=== PATIENT | female | born 1955 | race Caucasian/White ===

== ENCOUNTER 2017-02-03 12:18 | Emergency (ER) | payer BC ==
--- NOTE | ~2017-02-03 | US85 ---
[facility] A Service of [facility] RADIOLOGY TEXT RESULTS PATIENT: ADRIEL BLAKE LOCATION: LESLY : 55 UNIT #: [id number] AGE: [address]: Micheal Saul MD SEX: F ORDER DR: [id number] [facility] [address] [place], [place] [address] [id number] MR#: [id number] Acc #: [id number] NAME: ADRIEL BLAKE : 1955 SEX: F STUDY DATE/TIME: 02/03/2017 14:26 UNIT: LESLY ROOM: STUDY DESCRIPTION: LE [employer] Stdy Attending Physician: Micheal Saul M.D. Ordering Physician: Jourdan Storey M.D. Primary Care Physician: Manisha Rose M.D. MEDICAL IMAGING REPORT This report is preliminary unless electronic signature is present EXAM Right lower extremity venous duplex 02/03/2017. HISTORY Right leg pain and swelling for 2 weeks. Evaluate for deep vein thrombosis. FINDINGS TECHNIQUE Venous ultrasound examination of the right lower extremity was performed using grayscale, spectral Doppler and color flow Doppler imaging. FINDINGS The examination is negative. There is no evidence of right lower extremity deep venous thrombus from the groin to the lower calf. Visualized greater saphenous vein is also patent. IMPRESSION Negative examination. No evidence of right lower extremity deep venous thrombosis. Dictated by... Leandro Villafana M.D. THIS IS AN ELECTRONICALLY VERIFIED REPORT Leandro Villafana M.D. at 02/07/2017 9:19 AM LANIE/john TD: 02/03/2017 18:30 JOB #: [id number] MEDICAL IMAGING REPORT [facility] A Service [facility] RADIOLOGY TEXT RESULTS PATIENT: ADRIEL BLAKE LOCATION: LESLY : 55 UNIT #: [id number] AGE: [address]: Micheal Saul MD SEX: F ORDER DR: Page 1 of 1 COPY
[~2017-02-03 12:18] MED LIST: ACETAMINOPHEN PO; ASPIRIN PO; ASPIRIN81 M1 PO; ASPIRIN81 M2 PO; ASPIRIN81 MG PO; ATRAC-TAIN142 GM EXT; AUGMENTIN875 M1 PO; BENTYL20 MG PO; BENZONATATE PO; BUPROPION HCL150 M1 PO; BUPROPION HCL150 M2 PO; BYSTOLIC PO; CEFDINIR300 MG PO; CHEWABLE ASPIRI81 MG PO; CYMBALTA PO; DESYREL50 M1 PO; DESYREL50 MG GT; DESYREL50 MG PO; DIAZOXIDE PO; DICYCLOMINE HCL20 MG PO; DIFLUCAN200 MG PO; EFFEXOR XR PO; EFFEXOR-XR150 MG PO; EFFEXOR100 MG PO; FAMOTIDINE20 M1 GT; FLEXERIL PO; FLEXERIL10 MG GT; FLEXERIL10 MG PO; FOLIC ACID PO; FOLIC ACID1 MG PO; FOSAMAX PO; GABAPENTIN300 M2 PO; GABAPENTIN300 MG PO; HUMIBID-LA600 MG PO; HYDROCODON-ACE1 EAC7 PO; IBUPROFEN PO; KCL PO; KEFLEX PO; KEFLEX500 MG PO; LASIX20 MG GT; LASIX20 MG PO; LEVOTHYROXINE100 MCG PO; LEVOTHYROXINE88 MCG PO; LEVOXYL88 MC1 GT; LIDEX 0.05% OIN15 GM EXT; LIPITOR20 MG GT; LIPITOR20 MG PO; LOPRESSOR PO; LORTAB 5/500 TA1 TA1 PO; LORTAB 5/500 TA1 TA2 PO; METHOTREXATE2.5 MG PO; METOPROLOL TAR25 MG DOB; METOPROLOL TAR25 MG PO; NEURONTIN300 MG GT; NEXIUM PO; NITROGYLCERIN SUBLINGUAL; OMEPRAZOLE40 M1 PO; OTEZLA30 MG GT; OTEZLA30 MG PO; PEPCID AC20 M2 PO; PLAQUENIL200 MG PO; PLAVIX PO; PRILOSEC20 MG PO; PROTONIX PO; REGLAN5 MG GT; REQUIP PO; REQUIP1 MG PO; REQUIP2 MG PO; REQUIP5 MG PO; ROPINIROLE HCL2 MG GT; SANTYL15 G1 TOP; SINGULAIR PO; SODIUM BICARBO650 MG PO; SYNTHROID PO; SYNTHROID125 PO; TYLENOL325 M1 GT; VITAMIN D32000 UNI1 PO; WELLBUTRIN PO; WELLBUTRIN SR PO; WELLBUTRIN100 MG GT; ZITHROMAX500 MG PO; ZOCOR PO
[2017-02-03 14:26] LABS: BASOPHIL# 0.1 X10e3 (0-0.3); BASOPHIL% 0.5 % (0-2.5); HEMATOCRIT 30.6 % (35.0-45.0); HEMOGLOBIN 9.6 gm/dL (12.0-16.0); LYMPHOCYTE# 2.5 X10e3 (1.0-3.5); LYMPHOCYTE% 18.7 % (17.0-45.0); MEAN CELL VOLUME 89.7 FL (83-96); MEAN CORPUSCULAR HEMOGLOBIN 28.3 PG (28-34); MEAN CORPUSCULAR HGB CONC 31.5 g/dL (30-36); MEAN PLATELET VOLUME 7.4 FL (6.5-11.5); MONOCYTE# 1.4 X10e3 (0-1.0); MONOCYTE% 10.6 % (3.0-12.0); NEUTROPHIL# 9.3 X10e3 (1.5-7.1); NEUTROPHIL% 70.2 % (40-75); PLATELET COUNT 193 X10e3 (140-420); RED BLOOD COUNT 3.41 X10e (3.90-5.30); RED CELL DISTRIBUTION WIDTH 17.6 % (11.0-15.5); WHITE BLOOD COUNT 13.2 X10e3 (4.0-10.5)
[2017-02-03 14:37] LABS: DIFF IND NO
[2017-02-03 14:47] LABS: BUN/CREATININE RATIO 23.84; CREATININE SERUM 1.3 mg/dL (0.6-1.4); GLOM FILT RATE Estimated 44.2 mL/min (>60); POTASSIUM 5.2 mmol/L (3.5-5.1)
[2017-02-03 18:13] LABS: INR 1.1; PARTIAL THROMBOPLASTIN TIME 25.7 SECONDS (23.5-31.3); PROTHROMBIN TIME (PATIENT) 11.4 SECONDS (9.6-11.5)
== END 2017-02-03 17:00 | disposition home or self-care (01) ==
LOC: CED 12:18
PROVIDERS: Emergency Medicine
DX: L03.115 Cellulitis of right lower limb (principal); D64.9 Anemia, unspecified; M06.9 Rheumatoid arthritis, unspecified
CPT/HCPCS: 36415; 80048; 85025; 85379; 85610; 85730; 93971; 99284

== ENCOUNTER 2017-03-25 20:19 | Inpatient (IN) | payer BC ==
--- NOTE | ~2017-03-25 | CO ---
Unit #: [id number] #: [id number] Patient: ADRIEL BLAKE [id number] [address] [place], [place] [address] [id number] I MR#: [id number] NAME: ADRIEL BLAKE ROOM: [facility] Age: 61 Sex: F Admission Date: 03/26/2017 : 1955 Attending Physician: Juliana Conner M.D. Primary Care Physician: Manisha oRse M.D. Consultation Date: 03/27/2017 CONSULTATION REPORT REASON FOR CONSULTATION Antibiotic management in a patient with history of neck infection. HISTORY OF PRESENT ILLNESS This is a 61-year-old female with multiple past medical history including a recent tracheocutaneous fistula, status post repair in 2015. The patient also has had multiple neck surgeries with hardware present. The patient had some respiratory distress and she was noted to have a perforated esophagus, somewhat concerned related to her previous cervical hardware placement. The patient was at [facility] and appears to have underwent a successful esophageal repair of the perforation with revision of her hardware. The patient had cultures that were positive for Aileen albicans and Aileen glabrata and was placed on Diflucan until 03/24 and she also completed ceftriaxone and Flagyl until 03/03/2017. The patient was at [facility] and recently was discontinued on 03/15/2017 with monotherapy Diflucan to complete until the 24 of March. The patient was at home and the family believes that her EDEN drain in her neck may have been pulled out three to four days after being home. She then developed some change in her drainage from her EDEN. She also developed some fever and shortness of air with associated weakness and came to [facility]. The patient was admitted for pneumonia. However, she is not on any oxygen therapy and her tracheostomy tube is capped. While here, she has had a fever of 102.9. Her white blood cell count has been 22,000 and she has been started on vancomycin and Zosyn and ID was asked to evaluate for further management. PAST MEDICAL HISTORY Includes: 1. COPD. Rheumatoid arthritis. 2. Hypertension. 3. Coronary artery disease. 4. History of tracheocutaneous fistula in 2016. 5. Multiple cervical spine surgeries with hardware. 6. The patient also has had a PEG placement. 7. Engel esophagus. 8. Chronic kidney disease. 9. Erosive esophagitis. 10. Fibromyalgia. 11. Hypothyroidism. 12. Myocardial infarct. 13. Psoriasis. 14. Pseudomonas infection in the past. 15. Restless leg syndrome. Unit #: [id number] #: [id number] Patient: ADRIEL BLAKE 16. Seizures. 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 18. The patient has also had wrist surgery. 19. Bilateral breast reduction. 20. Cholecystectomy. 21. Lap band. 22. Elbow surgery x5. 23. Rotator cuff surgery. 24. Finger tendon repair. ALLERGIES No known allergies. MEDICATIONS Vancomycin and Zosyn. For other medications, please refer to patient's MAR. SOCIAL HISTORY No alcohol use x10 years. No tobacco abuse currently. REVIEW OF SYSTEMS The patient reports minimal shortness of air. She reports fever at home. She reports drainage coming from her EDEN drain in the right side of her neck. No significant abdominal pain, nausea or diarrhea at this time. No non-healing wounds. She has a neck brace in place and she wishes for it to be removed. PHYSICAL EXAMINATION VITAL SIGNS: Temperature 98.5 with a T-max on admission of 102.9, pulse is 81, blood pressure 138/59 and respiratory rate is 18. GENERAL: This is a no apparent distress female who is currently laying in the bed comfortably. She has a hard C-collar in place with a tracheostomy that is midline that is capped. HEENT/NECK: Her pupils are equal. Her neck incision is intact. She has a EDEN drain in the right side of her neck that appears to have some exposure of the white part of the drain. The drain itself shows some purulent fluid collection. CHEST EXAM: Diminished lung lai. CARDIOVASCULAR: S1, S2. Regular rate and rhythm. ABDOMEN: Positive bowel sounds. Soft, nontender with PEG tube. EXTREMITIES: No clubbing, cyanosis, edema. There is a PICC line in place. DIAGNOSTIC STUDIES LABORATORY: BUN 42, creatinine 1.1, sodium 135, potassium 3.4, chloride 103, CO2 22, bilirubin is 0.7, AST 91, ALT is 74, alkaline phos. 279. Procalcitonin was not checked this admission. White blood cell count 19.6, hemoglobin 9.0, hematocrit 27.7 and platelets 161. Urinalysis shows minimal pyuria with no nitrites and 10-25 WBCs. Urine culture shows less than 30,000 colonies of Gram-positive and Gram-negative fortunato, suspected (1) contamination. Blood cultures are currently showing no growth after 24 hours. Unit #: [id number] #: [id number] Patient: ADRIEL BLAKE IMAGING: CT scan of the chest is not available for my review at this time. 03/26 chest x-ray shows no focal infiltrates. CT scan of the abdomen and pelvis done on admission due to some nausea, showed no obstructing renal or ureteral calculi. Bilateral kidney atrophy. Absence of gallbladder. Prior gastric banding. Infiltrate in the right lower lobe. IMPRESSION This is a 61-year-old female with complex medical history. The patient has a history of erosive esophagitis secondary to past alcohol use years ago. The patient developed a tracheocutaneous fistula in 2015. At that time, she had a flap repair. The patient then presented after multiple spine surgeries in the past with an esophageal perforation thought to be related to the cervical hardware placement. She has since had this esophageal perforation repaired in January of 2017. The patient also had a revision of her cervical spine surgery and hardware revision at that time. The patient's cultures all grew Aileen albicans and Aileen glabrata. She was broadly covered with antibiotics and appears for about two weeks and then she was also to be on Diflucan until the 24 of March. The [facility] was at [facility]. She was doing well and she was sent home on the 15 of March. Several days after being home, it appears that her drain had gotten pulled out some and there was a change in drainage from serosanguineous to more brown per the family. The patient then began developing fever and some occasional shortness of air and she now appears at this time to most likely have a malpositioned EDEN in her neck with questionable developing abscess in her neck and unclear if patient has ongoing leak from her esophageal repair. She does inform me that she does not eat and she does have tube feeds at home. The patient also has some questionable right lower lobe pneumonia, however, is not requiring oxygen therapy and is not producing any productive sputum. At this time, the case was discussed with Dr. Conner and the patient will need a CT scan of her neck to evaluate the drain placement and may need repositioning or CT surgery to evaluate. Vancomycin and Zosyn are appropriate at this time but, with patient's history of Aileen albicans and non-albicans infection, would recommend to also add Mycamine 100 mg IV q.24 hours with the first dose stat. Will have the nursing staff call with any positive blood cultures and will continue to follow patient. Thank you for allowing us to participate in the care and further recommendations to follow pending patient's clinical course. Dictated by... Evan MccordP.R.NMaggie for Raymundo Frost/abiel TD: 03/27/2017 12:00 JOB #: [id number] Unit #: [id number] #: [id number] Patient: ADRIEL BLAKE CONSULTATION REPORT Page 1 of 1 X X CONSULTATION REPORT
--- NOTE | ~2017-03-25 | FU ---
[facility] Nutrition Therapy DATE: 03/30/17 Patient: ADRIEL BLAKE Physician: JUDITH Address: [address] [place] [address] Room/Bed: [address], Zip: [place] [address] Admit Date: 03/26/17 Date of : 55 Height: 5 5 Weight: 123 56 NUTRITION MONITORING/FOLLOW-UP: Reason: PT SEEN FOR FOLLOW-UP/ENTERAL NUTRITION SUPPORT DX: FEVER, N/V/D, PNA Anthropometrics: 5'0", WT: 123# (56 KG), BMI: 24.0 -ADMIT WEIGHT: 116# Labs: CA+:7.7, ALB: 2.1, AST: 82, ALT: 78 Meds: D5%, SYNTHROID (PEG), NOVOLOG, MIRALAX, ZOFRAN, FOLIC ACID, ASCORBIC ACID I&O's: 4264/3913, 3 BMs NOTED Skin: NO KNOWN SKIN ISSUES Estimated Nutrition Needs: [id number] KCAL 57-63 G PRO Assessment: CHART REVIEWED AND EVENTS NOTED. PT SEEN FOR ENTERAL NUTRITION SUPPORT FOLLOW-UP. PT ASLEEP AT TIME OF VISIT RECEIVING ALTERNATIVE NUTRITION SUPPORT OF JEVITY 1.5 @ 50 ML/HR X 20 HOURS (PT ON SYNTHROID-HOLD 2 HOURS BEFORE AND 2 HOURS AFTER ADMINISTRATION). PER RN AND CHART, PT TOLERATING ENTERAL NUTRITION, BUT NOTING DIARRHEA YESTERDAY. PER PUMP HISTORY, PT RECEIVING ~86% TOTAL VOLUME PAST 24 HOURS. NO FAMILY IN ROOM AT TIME OF VISIT. RD TO CONTINUE TO FOLLOW. Dx: INADEQUATE PROTEIN-ENERGY INTAKE R/T PMH, CURRENT DIAGNOSIS AEB PT REPORT, PEG IN PLACE PRIOR TO ADMIT, HOME ALTERNATIVE NUTRITION SUPPORT IN PLACE.-ACTIVE Intervention: 1. ENTERAL NUTRITION Monitoring, Evaluation and Goals: 1. ENTERAL NUTRITION; PROVIDE >80% TOTAL VOLUME X 20 HOURS-MET/IN PROGRESS 2. WEIGHTS; PROMOTE WEIGHT MAINTENANCE-IN PROGRESS 3. LABS; WNL-IN PROGRESS 4. GI; PROMOTE REGULAR GI FUNCTION-IN PROGRESS MONITOR: -TF RATE/RESIDUALS -WEIGHTS -LABS [facility] Nutrition Therapy DATE: 03/30/17 Patient: ADRIEL BLAKE Physician: JUDITH Address: [address] [place] [address] Room/Bed: [address], Zip: [place] [address] Admit Date: 03/26/17 Date of : 55 Height: 5 5 Weight: 123 56 Recommendations: 1. RECOMMEND TO INCREASE CURRENT ENTERAL NUTRITION SUPPORT OF JEVITY 1.5 TO GOAL RATE OF 55 ML/HR X 20 HOURS (PT ON SYNTHROID-HOLD 2 HOURS BEFORE AND 2 HOURS AFTER ADMINISTRATION) -PROVIDES 1650 KCAL, 70 G PRO, 836 ML FREE H20 ADD FREE H20 FLUSHES OF 130 ML q 4 HOURS TO MEET PT'S CURRENT ESTIMATED FLUID NEEDS OR MANAGE PER MD 2. CONTINUE TO MONITOR FOR SIGNS OF ENTERAL NUTRITION INTOLERANCE RD WILL F/U PER PROTOCOL PT IS MODERATELY COMPROMISED Respectfully, TAL FERNANDEZ MS, RD, LD Food and Nutritional Services [facility] cc: client file
--- NOTE | ~2017-03-25 | A ---
[facility] Nutrition Therapy DATE: 03/27/17 Patient: ADRIEL BLAKE Physician: JUDITH Address: [address] [facility] Room/Bed: [address], Zip: [place] [address] Admit Date: 03/26/17 Date of : 55 Height: 5 5 Weight: 122 55.33 NUTRITIONAL ASSESSMENT: REASON: CONSULT RE: ENTERAL NUTRITION SUPPORT ASSESSMENT PT IS 61 Y.O. FEMALE ADMITTED FOR FEVER N/V/D, PNA PMH: NO RECENT H&P IN [facility]. PER CHART/PAST NOTES: CKD STAGE 3, RAPHAEL'S ESOPHAGUS, CAD, COPD, RA, GERD, RLS, LAP BAND, HYPOTHYROID, HTN, SD, S/P PEG & TRACH PLACEMENT Anthropometrics: 5'0" (PER PT), WT: 115# (PER PT) ( 52 KG ), BMI: 22.5, 115%IBW Labs: K+:3.4, GLU: 127, BUN: 42, CA+:8.2, ALB: 2.3, AST: 91, ALT: 74. GFR: 54.2 Meds: SYNTHROID (PEG), NOVOLOG, MIRALAX, ZOFRAN, FOLIC ACID, VITAMIN D, ASCORBIC ACID, PROTONIX, NACL I/O & Bowel function: 1523/4, 2 BMs NOTED Skin Integrity: NO KNOWN SKIN ISSUES Estimated Nutrition Needs: [id number] KCAL (28-32 KCAL/KG BW) 57-73 G PRO (1.1-1.4 G PRO/KG BW) FLUIDS CONSISTENT W/KCAL NEEDS OR MANAGE PER MD Assessment: CHART REVIEWED AND EVENTS NOTED. PT SEEN FOR ENTERAL NUTRITION SUPPORT CONSULT. PT AWAKE AT TIME OF VISIT REPORTING DECREASED PO INTAKE 2' DECREASED APPETITE PAST SEVERAL MONTHS. PT REPORTS WEIGHT LOSS BUT UNABLE TO IDENTIFY AMOUNT AND TIME FRAME. PER [facility], PT WEIGHED ~150# IN AUGUST 2016?? OF NOTE, PT RECEIVING BOLUS ENTERAL NUTRITION NEPRO 1 CAN q 4 HOURS (6 CANS TOTAL) + 200 ML q 6 HOURS FREE H20 FLUSHES. PER PT AND FAMILY, NOT WAS NOT TOLERATING HOME BOLUS FEEDS-NOTED N/V. OF NOTE, PT NOTED TO HAVE ESOPHAGEAL PERFORATION IN JANUARY 2017. PT REPORTED NO DIET QUESTIONS AT THIS TIME. RD TO FOLLOW. SEE RECOMMENDATIONS BELOW. Dx: INADEQUATE PROTEIN-ENERGY INTAKE R/T PMH, CURRENT DIAGNOSIS AEB PT REPORT ABOVE, PEG IN PLACE, HOME ENTERAL NUTRITION SUPPORT. Intervention: 1. RD CONSULT 2. NEPRO BOLUS FEEDS 1 CAN q 4 HOURS Monitoring, Evaluation and Goals: 1. ENTERAL NUTRITION; PROVIDE/TOLERATE >80% TOTAL VOLUME X 22 HOURS W/NO RESIDUALS 2. WEIGHTS; PROMOTE WEIGHT MAINTENANCE; PREVENT FURTHER WEIGHT LOSS 3. LABS; WNL: [facility] Nutrition Therapy DATE: 03/27/17 Patient: ADRIEL ANTON HAYDEN Physician: JUDITH Address: [address] [place] [address] Room/Bed: [address], Zip: [place] [address] Admit Date: 03/26/17 Date of : 55 Height: 5 5 Weight: 122 55.33 4. GI; PROMOTE REGULAR GI FUNCTION MONITOR: -WEIGHTS -TF RATE/RESIDUALS -LABS Recommendations: 1. ONCE MEDICALLY FEASIBLE, BEGIN ALTERNATIVE NUTRITION SUPPORT OF JEVITY 1.5 @ 20 ML/HR, ADVANCE 10 ML q 8 HOURS TO GOAL RATE OF 50 ML/HR X 22 HOURS (PT ON SYNTHROID-HOLD ONE HOUR BEFORE AND ONE HOUR AFTER ADMINISTRATION) -PROVIDES 1650 KCAL, 70 G PRO, 836 ML FREE H20 ADD FREE H20 FLUSHES PER MD 2. CONSULT CATTLE KILLER FOR SAFE SWALLOW IF APPROPRIATE RD WILL F/U PER PROTOCOL PT IS MOD/SEVERELY COMPROMISED Respectfully, TAL FERNANDEZ MS, RD, LD Food and Nutritional Services [facility] cc: client file
--- NOTE | ~2017-03-25 | CR72 ---
[facility] A Service of [facility] RADIOLOGY TEXT RESULTS PATIENT: ADRIEL BLAKE LOCATION: SED : 55 UNIT #: [id number] AGE: [address]: Juliana Conner MD SEX: F ORDER DR: [id number] [address] [address] [id number] MR#: [id number] Acc #: [id number] NAME: ADRIEL BLAKE : 1955 SEX: F STUDY DATE/TIME: 03/25/2017 21:43 UNIT: SED ROOM: STUDY DESCRIPTION: CR Chest Single View Portable Attending Physician: Jose Granados M.D. Ordering Physician: Jose Granados M.D. Primary Care Physician: Manisha Rose M.D. MEDICAL IMAGING REPORT This report is preliminary unless electronic signature is present. EXAM Portable chest, 03/25/2017. HISTORY Fever, nausea, and cough for 1 day. Benign essential hypertension FINDINGS The heart is normal in size. The lungs are clear. There are no pleural effusions. There are old healed rib fractures bilaterally. Tracheostomy tube tip is approximately 3 cm above the omayra. Postsurgical changes of prior fusion in the lower cervical spine. Postoperative changes involving the right shoulder. IMPRESSION No active pulmonary disease. Dictated by... Leandro Villafana M.D. THIS IS AN ELECTRONICALLY VERIFIED REPORT Leandro Villafana M.D. at 03/26/2017 2:16 PM LANIE/allison TD: 03/26/2017 04:54 JOB #: [id number] MEDICAL IMAGING REPORT Page 1 of 1
--- NOTE | ~2017-03-25 | HP ---
Unit #: [id number] #: [id number] Patient: ADRIEL BLAKE [id number] [address] [place], [place] [address] [id number] I MR#: [id number] NAME: ADRIEL BLAKE ROOM: [facility] Age: 61 Sex: F Admission Date: 03/26/2017 : 1955 Attending Physician: Juliana Conner M.D. Primary Care Physician: Manisha Rose M.D. HISTORY AND PHYSICAL CHIEF COMPLAINT Shortness of breath. HISTORY OF PRESENT ILLNESS This patient is basically a 61-year-old female with a past medical history of tracheocutaneous fistula, underwent closure with sternohyoid flap and rhomboid flap closure in mid 2015. 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 She is NPO because of the diverticulum and she uses the gastrostomy tube and was admitted at [facility] for physical rehabilitation. She required continuous tube feeding during that admission. She has a C-collar followed by ENT and has a EDEN drain with continuous output. At this time, presents with a complaint of shortness of breath to an outside facility. I am seeing her at the bedside. She is requiring IV pressors. Denies any headache, blurry vision. No chest pain. REVIEW OF SYSTEMS Positive for pallor. No edema. No cyanosis. No jaundice. Rest are per history of present illness. Rest of 12-point review of systems has been reviewed and is negative. DIAGNOSTIC STUDIES IMAGING: Chest x-ray showed she had a CT of the abdomen and pelvis done at an outside facility. It showed possible right lower lobe infiltrate. I am seeing her at the bedside. She has significant discharge in her EDEN drain in her neck, yellowish color. PHYSICAL EXAMINATION VITAL SIGNS: Temperature 98, pulse 87, respirations 12, blood pressure 130/70. NEUROLOGIC: Awake, alert, oriented. No neuro deficit. HEENT: PERRLA plus 1. NECK: Supple. No JVD. CHEST: Bilateral air entry. Bilateral mild rhonchi. GASTROINTESTINAL: Nontender, soft. Bowel sounds positive. EXTREMITIES: No edema. Labs and imaging have been reviewed. PAST MEDICAL HISTORY 1. Rheumatoid arthritis. 2. Coronary artery disease. 3. Gastrostomy tube. Unit #: [id number] #: [id number] Patient: ADRIEL BLAKE 4. Status post tracheostomy. 5. COPD. 6. Psoriasis. 7. Pancytopenia. 8. Hypertension. 9. Irritable bowel syndrome. 10. Restless leg syndrome. 11. Hyperglycemia. 12. Cholecystectomy. 13. Lap Band surgery. 14. Breast reduction surgery. 15. Left wrist surgery. 16. C-spine surgery. MEDICATIONS As per NOV, has been reviewed. ASSESSMENT 1. Right lower lobe pneumonia, possible aspiration and questionable infection at the site of the EDEN drain. 2. Sepsis shock. PLAN At this point, plan is to continue patient on pressors. Continue on oxygen, bronchodilator, IV fluids, gastrointestinal/deep venous thrombosis prophylaxis, (1) , broad-spectrum IV antibiotics. Please see orders for detailed plan. Infectious disease consultation. Will request ENT from [facility] to coordinate the care. The patient will be closely monitored. Please see orders for detailed plan. Dictated by Raymundo Bullard TD: 03/27/2017 11:13 JOB #: [id number] HISTORY AND PHYSICAL Page 1 of 1 X Juliana Conner MD HISTORY AND PHYSICAL
--- NOTE | ~2017-03-25 | EKG ---
PATIENT: ADRIEL BLAKE UNIT #: [id number] Ventricular Rate: 99 BPM Atrial Rate: 99 BPM P-R Interval: 176 ms QRS Duration: 82 ms Q-T Interval: 352 ms QTC Calculation(Bezet): 451 ms P [place]: 45 degrees Calculated R [place]: 12 degrees Calculated T [place]: 12 degrees Diagnosis Line: Normal sinus rhythm Diagnosis Line: Normal ECG Diagnosis Line: When compared with ECG of 16-AUG-2016 20:37, Diagnosis Line: No significant change was found Diagnosis Line: Confirmed by PRINCE SCOTT MD ([id number]) on 03/29/2017 Diagnosis Line: 2:50:27 PM INTERPRETING MD: SONIA TREVINO
--- NOTE | ~2017-03-25 | DS ---
Unit #: [id number] #: [id number] Patient: ADRIEL BLAKE [id number] [address] [address] [id number] I MR#: [id number] NAME: ADRIEL BLAKE ROOM: [facility] Age: 61 Sex: F Admission Date: 03/26/2017 : 1955 Discharge Date: 04/02/2017 Attending Physician: Juliana Conner M.D. Referring Physician: Juliana Conner M.D. Primary Care Physician: Manisha Rose M.D. DISCHARGE SUMMARY DISCHARGE DIAGNOSES 1. Atypical pneumonia. 2. Other comorbidities: A. Adrenal insufficiency. B. Hypertension, currently hypotensive. C. Coronary artery disease. D. History of tracheocutaneous fistula, 2015. E. Multiple cervical spine surgery with hardware. F. Engel esophagus. G. Chronic kidney disease. H. Erosive esophagitis. I. Fibromyalgia. J. Hypothyroidism. K. Myocardial infarction. L. Psoriasis. M. Pseudomonas infection in the past. N. Restless leg syndrome. O. Seizure. DISCHARGE MEDICATIONS New medication: 1. Hydrocortisone 10 mg p.o. b.i.d. 2. Midodrine 10 mg p.o. t.i.d. 3. Probiotics one tab p.o. daily. Home medication: 1. Tylenol p.r.n. 2. Neurontin 300 mg three times daily. 3. Wellbutrin 100 mg p.o. twice daily. 4. Trazodone 50 mg p.o. daily. 5. Zofran 4 mg p.o. q.i.d. p.r.n. 6. Requip 4 mg daily. 7. Docusate p.r.n. 8. MiraLax p.r.n. 9. Ferrous sulfate 300 mg p.o. daily. 10. Multivitamin p.o. daily. 11. Melatonin. 12. Oxycodone 10 mg q.4 hours p.r.n. 13. Petroleum ointment b.i.d. 14. Omeprazole 40 mg p.o. daily. 15. Flexeril 5 mg at bedtime. 16. Levothyroxine 88 mcg p.o. daily. 17. Folic acid 1 mg p.o. daily. 18. Vitamin C daily. Unit #: [id number] #: [id number] Patient: ADRIEL BLAKE 19. Vitamin D daily. The patient finished all antibiotics before discharge. CONSULTANTS 1. Dr. Wilson. 2. Dr. Colón. BRIEF HOSPITAL COURSE This is a 61-year-old -[place] female with a complex past medical history including tracheocutaneous fistula status post repair in 2015. So, the patient had multiple neck surgeries with hardware present and she is currently with neck collar. The patient recently underwent a successful esophageal repair at the [facility] with revision of the hardware. Her culture in the past was positive for Aileen albicans and Aileen glabrata and she was placed on Diflucan until March 24, 2017. The patient was at [facility] recently. When she was discharged home, she accidentally pulled her EDEN drain in her neck and then she developed some drainage and fever with shortness of breath. Upon presentation to the ER, her workup was suggestive of atypical pneumonia. The patient was started on broad-spectrum antibiotics. However, her antibiotics were discontinued on the day of discharge. The patient suffered from septic shock throughout admission and she was needing pressors for an extended period of time. Adrenal insufficiency was suspected and her cortisone level was seven. She was started on hydrocortisone IV and she will be switched to hydrocortisone p.o. and she will follow up with Dr. Colón as an outpatient. Discharged home. DISCHARGE CONDITION Stable. Followup appointment with Dr. Colón in one week. Dictated by... Raymundo Tapia TD: 04/03/2017 07:46 JOB #: [id number] DISCHARGE SUMMARY Page 1 of 1 X MAGALY AUSTIN MD X DISCHARGE SUMMARY
--- NOTE | ~2017-03-25 | CT4 ---
[facility] A Service of [facility] & [facility] RADIOLOGY TEXT RESULTS PATIENT: ADRIEL BLAKE LOCATION: SEDOF [id number] : 55 UNIT #: [id number] AGE: [address]: Juliana Conner MD SEX: F ORDER DR: [id number] [address] [address] [id number] E MR#: [id number] Acc #: [id number] NAME: ADRIEL BLAKE : 1955 SEX: F STUDY DATE/TIME: 03/25/2017 22:27 UNIT: SED ROOM: STUDY DESCRIPTION: CT Abd and Pelv Wo Cont Attending Physician: Jose Granados M.D. Ordering Physician: Jose Granados M.D. Primary Care Physician: Manisha Rose M.D. MEDICAL IMAGING REPORT This report is preliminary unless electronic signature is present. EXAM CT scan of the abdomen and pelvis without contrast, 03/25/2017. HISTORY Generalized abdominal pain and nausea for 1 day. Elevated white blood cell count of 22.[address] was performed through the abdomen and pelvis without oral or intravenous contrast administration using renal stone protocol. This CT exam was performed with one or more of the following radiation dose reduction techniques: automatic exposure control, adjustment of mA and/or kV according to patient size, and iterative reconstruction. FINDINGS ABDOMEN: There is no obstructing renal or ureteral calculus. The kidneys are atrophic bilaterally. The liver is normal in appearance. Calcified granulomas are seen in the spleen. The pancreas is normal. The gallbladder is surgically absent. Adrenal gland nodularity is stable compared with 08/23/2017 and may represent adrenal adenomas. Gastric banding is again noted. PELVIS FINDINGS: The gut, mesenteric and nubia structures are normal. There is no free fluid in the abdomen or pelvis. Images of the lung bases demonstrate reticulonodular infiltrate in the right lower lobe characteristic of pneumonia. There is a small pericardial effusion. IMPRESSION 1. No obstructing renal or ureteral calculus. Kidneys are atrophic bilaterally. 2. Surgical absence of the gallbladder. 3. Stable nodularity of both adrenal glands compared with 08/23/2016, [facility] A Service of [facility] & [facility] RADIOLOGY TEXT RESULTS PATIENT: ADRIEL BLAKE LOCATION: SED [id number] : 55 UNIT #: [id number] AGE: [address]: Juliana Conner MD SEX: F ORDER DR: probably representing bilateral adrenal adenomas. 4. Prior gastric banding is again noted. 5. Enteric tube within the gastric lumen. 6. Reticulonodular infiltrate right lower lobe suggesting pneumonia. Clinical correlation recommended. 7. Small pericardial effusion. Dictated by... Leandro Villafana M.D. THIS IS AN ELECTRONICALLY VERIFIED REPORT Leandro Villafana M.D. at 03/26/2017 2:16 PM LANIE/allison TD: 03/26/2017 05:38 JOB #: [id number] MEDICAL IMAGING REPORT Page 1 of 1
--- NOTE | ~2017-03-25 | CT114 ---
[facility] A Service of [facility] & [facility] RADIOLOGY TEXT RESULTS PATIENT: ADRIEL BLAKE LOCATION: [address] : [birth year] UNIT #: [id number] AGE: [address]: Juliana Conner MD SEX: F ORDER DR: [id number] [facility] [address] [facility]. [place], [place] [address] [id number] I MR#: [id number] Acc #: [id number] NAME: ADRIEL BLAKE : 1955 SEX: F STUDY DATE/TIME: 03/27/2017 21:41 UNIT: [facility] ROOM: [facility] STUDY DESCRIPTION: CT Soft Tissue Neck W Cont Attending Physician: Juliana Conner M.D. Referring Physician: Juliana Conner M.D. Ordering Physician: Juliana Conner M.D. Primary Care Physician: Manisha Rose M.D. MEDICAL IMAGING REPORT This report is preliminary unless electronic signature is present EXAM Neck CT with contrast HISTORY Cough, fever and sepsis, onset 03/25/2017. 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 COMPARISON 02/14/2017. TECHNIQUE Axial imaging was obtained from the skull base to the upper mediastinum with contrast. 100 mL of Isovue was used. This CT examination was performed with one or more of the following radiation dose reduction techniques: automatic exposure control, adjustment of mA and/or kV according to patient size, and iterative reconstruction. FINDINGS The skull base, parapharyngeal spaces and pharyngeal mucosal surfaces have a normal appearance. The parotid and submandibular glands are symmetric. Soft tissue planes in the hypopharynx and larynx are preserved. Postoperative changes of cervical corpectomy infusion are noted with a large strut graft seen from C2 to the upper endplate of C7. There is a ventral bone plate with screws at C2 and C7 and posterior fusion rods are seen accompanied by bone graft material. The hardware is unchanged from the previous examination. The left C2 pedicle screw is positioned somewhat high and the distal end of the screw rests between the articulation of the lateral mass of C1 and the C2 vertebral body with mild bony resorption around the distal end of the screw. The other hardware appears satisfactory. A drain is seen entering on the right unchanged in position from the previous examination. The distal end of the drain extends inferiorly to T1 just anterior to the T1 vertebral body. No additional drainable fluid collections are seen in the neck. [facility] A Service of [facility] RADIOLOGY TEXT RESULTS PATIENT: ADRIEL BLAKE LOCATION: CICCU2 CICCU2-09 : 55 UNIT #: [id number] AGE: [address]: Juliana Conner MD SEX: F ORDER DR: tracheostomy tube appears in satisfactory position. The proximal right vertebral artery appears to be occluded. The distal right vertebral fills from collaterals and is of small caliber. The dominant left vertebral artery is widely patent throughout the cervical spine. The right vocal cord is displaced medially. This could be secondary to postoperative swelling. I cannot rule out a right vocal cord paralysis. No adenopathy is seen in the upper mediastinum. The right sternocleidomastoid muscle has been resected. IMPRESSION Postoperative changes right side of the neck with a drain in place and no drainable fluid collection is identified. Again noted is somewhat high positioning of the C2 pedicle screw on the left. It runs in the joint space between C1 and C2. No new fluid collections are seen since the previous outside scan of 02/14/2017. No evidence of adenopathy. The right vocal cord is displaced medially. I cannot rule out a right vocal cord paralysis. Hardware is unchanged in position since the previous examination. Dictated by... Micheal Strickland M.D. THIS IS AN ELECTRONICALLY VERIFIED REPORT Micheal Strickland M.D. at 03/30/2017 4:08 PM AGUSTINA/kimmy TD: 03/30/2017 06:56 JOB #: [id number] MEDICAL IMAGING REPORT Page 1 of 1 COPY
--- NOTE | ~2017-03-25 | CR72 ---
[facility] A Service of [facility] & [facility] RADIOLOGY TEXT RESULTS PATIENT: ADRIEL BLAKE LOCATION: [place] [address] : 55 UNIT #: [id number] AGE: [address]: Juliana Conner MD SEX: F ORDER DR: [id number] [facility] [address] [place], [place] [address] [id number] I MR#: [id number] Acc #: [id number] NAME: ADRIEL BLAKE : 1955 SEX: F STUDY DATE/TIME: 03/28/2017 5:35 UNIT: [facility] ROOM: [facility] STUDY DESCRIPTION: CR Chest Single View Portable Attending Physician: Juliana Conner M.D. Referring Physician: Juliana Conner M.D. Ordering Physician: Juliana Conner M.D. Primary Care Physician: Manisha Rose M.D. MEDICAL IMAGING REPORT This report is preliminary unless electronic signature is present EXAM Portable chest HISTORY Followup pneumonia, onset 2 days ago, fever, weakness. COMPARISON 03/26/2017 FINDINGS Trach tube and PICC line remain in satisfactory position, unchanged. Improved lung volumes. Minimal right basilar atelectasis. Multiple old healed right rib fractures. Heart and mediastinum unremarkable. No effusions or pneumothorax. Postsurgical changes of the cervical spine and right shoulder. Scoliosis. Dictated by... Princess Bowers M.D. THIS IS AN ELECTRONICALLY VERIFIED REPORT Princess Bowers M.D. at 03/29/2017 12:28 PM Dion TD: 03/28/2017 21:38 JOB #: [id number] MEDICAL IMAGING REPORT Page 1 of 1 COPY
[2017-03-25 21:06] LABS: URINE SOURCE CLEAN CATCH
[2017-03-25 21:09] LABS: URINE APPEARANCE CLEAR; URINE BILIRUBIN NEG (NEG); URINE BLOOD TRACE-INTACT (NEG); URINE COLOR YELLOW; URINE GLUCOSE NEG (NORM); URINE KETONE NEG (NEG); URINE LEUKOCYTE ESTERASE 1+ (NEG); URINE NITRATE NEG (NEG); URINE PH 7.5 (5-8); URINE PROTEIN TRACE (NEG); URINE UROBILINOGEN 0.2 MG/DL (NORM)
[2017-03-25 21:11] LABS: BASOPHIL# 0.1 X10e3 (0-0.3); BASOPHIL% 0.3 % (0-2.5); HEMATOCRIT 36.5 % (35.0-45.0); HEMOGLOBIN 12.1 gm/dL (12.0-16.0); LYMPHOCYTE# 1.6 X10e3 (1.0-3.5); LYMPHOCYTE% 7.2 % (17.0-45.0); MEAN CELL VOLUME 92.9 FL (83-96); MEAN CORPUSCULAR HEMOGLOBIN 30.7 PG (28-34); MEAN PLATELET VOLUME 9.1 FL (6.5-11.5); MONOCYTE# 1.6 X10e3 (0-1.0); MONOCYTE% 7.1 % (3.0-12.0); NEUTROPHIL# 18.9 X10e3 (1.5-7.1); NEUTROPHIL% 85.4 % (40-75); PLATELET COUNT 203 X10e3 (140-420); RED BLOOD COUNT 3.93 X10e (3.90-5.30); RED CELL DISTRIBUTION WIDTH 16.9 % (11.0-15.5); WHITE BLOOD COUNT 22.2 X10e3 (4.0-10.5)
[2017-03-25 21:12] LABS: MICRO INDICATED? YES
[2017-03-25 21:12] LABS: DIFF IND NO
[2017-03-25 21:14] LABS: CULTURE INDICATED? YES; URINE BACTERIA 1+ (NEG); URINE SQUAMOUS EPITHELIAL CELL FEW /[HPF]; URINE TRANSITIONAL EPI CELLS OCCAS /[HPF]
[2017-03-25 21:29] LABS: ALBUMIN SERUM 3.3 g/dL (3.5-5.0); BILIRUBIN, DIRECT 0.1 mg/dL (0.0-0.2); BILIRUBIN,INDIRECT 0.4 mg/dL (0.0-0.9); BILIRUBIN,TOTAL 0.5 mg/dL (0.2-2.0); CALCIUM SERUM 9.8 mg/dL (8.4-10.2); CREATININE SERUM 1.4 mg/dL (0.6-1.4); GLOM FILT RATE Estimated 40.4 mL/min (>60); POTASSIUM 4.3 mmol/L (3.5-5.1); PROTEIN TOTAL SERUM 8.3 g/dL (6.0-8.3)
[2017-03-25 22:12] LABS: POC - CKMB <1.0 ng/mL (0.0-7.9); POC - TROPONIN <0.05 ng/mL (<=0.05)
[2017-03-25] MEDS ORDERED: ASCORBIC ACID500 M4 PEG (23:37)
[2017-03-25] MEDS ORDERED: WELLBUTRIN100 MG PEG (23:37)
[2017-03-25] MEDS ORDERED: TYLENOL325 M1 PEG (23:37)
[2017-03-25] MEDS ORDERED: ALBUTEROL 0.5ML (23:37)
[2017-03-25] MEDS ORDERED: FOLIC ACID PEG (23:38)
[2017-03-25] MEDS ORDERED: FLUCONAZOLE200 MG PEG (23:38)
[2017-03-25] MEDS ORDERED: VITAMIN D1000 UNI1 PEG (23:38)
[2017-03-25] MEDS ORDERED: LEVOXYL88 MCG PEG (23:38)
[2017-03-25] MEDS ORDERED: GABAPENTIN400 MG PEG (23:38)
[2017-03-25] MEDS ORDERED: FLEXERIL10 MG PEG (23:38)
[2017-03-25] MEDS ORDERED: REQUIP2 MG PEG (23:39)
[2017-03-25] MEDS ORDERED: OXYCODONE HCL10 MG PEG (23:39)
[2017-03-25] MEDS ORDERED: MULTI VITAMIN1 EACH PEG (23:39)
[2017-03-25] MEDS ORDERED: OMEPRAZOLE40 M1 PEG (23:39)
[2017-03-25] MEDS ORDERED: PROTEIN (23:39)
[2017-03-25] MEDS ORDERED: DESYREL50 MG PEG (23:40)
[2017-03-26] MEDS ORDERED: FERROUS SULFATE PEG (09:31)
[2017-03-26] MEDS ORDERED: DOCUSATE SODIU100 MG PEG (09:31)
[2017-03-26] MEDS ORDERED: MELATONIN1 MG PEG (09:32)
[2017-03-26] MEDS ORDERED: POLYETHYLENE GLY1 GM PEG (09:33)
[2017-03-26] MEDS ORDERED: ZOFRAN PEG (09:33)
[2017-03-26] MEDS ORDERED: VASELINE WHITE P5 GM TOP (09:34)
[2017-03-27 04:23] LABS: HEMATOCRIT 27.7 % (35.0-45.0); MEAN CELL VOLUME 92.4 FL (83-96); MEAN CORPUSCULAR HEMOGLOBIN 30.1 PG (28-34); MEAN CORPUSCULAR HGB CONC 32.6 g/dL (30-36); MEAN PLATELET VOLUME 8.5 FL (6.5-11.5); WHITE BLOOD COUNT 19.6 X10e3 (4.0-10.5)
[2017-03-27 04:33] LABS: ARTERIAL BLD GAS O2 SATURATION 96.7 % (90.0-100.0); ARTERIAL BLOOD GAS CARBOXY HB 1.3 %sat (0.0-9.0); ARTERIAL BLOOD GAS HCO3 21.7 mmol/L; ARTERIAL BLOOD GAS MET HB 0.4 %sat (0.0-2.0); ARTERIAL BLOOD GAS PCO2 34.9 mmHg (35.0-45.0); ARTERIAL BLOOD GAS PO2 96.5 mmHg (80.0-100); ARTERIAL BLOOD GAS pH 7.402 (7.350-7.450)
[2017-03-27 04:39] LABS: ARTERIAL BLOOD GAS ALLEN TEST NORMAL; ARTERIAL BLOOD GAS ART SITE RIGHT RADIAL; ARTERIAL BLOOD GAS DELIVERY ROOMAIR; ARTERIAL DRAW? YES
[2017-03-27 04:41] LABS: ALBUMIN SERUM 2.3 g/dL (3.5-5.0); BILIRUBIN,TOTAL 0.7 mg/dL (0.2-2.0); BUN/CREATININE RATIO 38.18; CALCIUM SERUM 8.2 mg/dL (8.4-10.2); CREATININE SERUM 1.1 mg/dL (0.6-1.4); GLOM FILT RATE Estimated 54.2 mL/min (>60); POTASSIUM 3.4 mmol/L (3.5-5.1); PROTEIN TOTAL SERUM 6.3 g/dL (6.0-8.3)
[2017-03-28 04:37] LABS: BASOPHIL# 0.1 X10e3 (0-0.3); BASOPHIL% 0.4 % (0-2.5); EOSINOPHIL# 0.2 X10e3 (0-0.7); EOSINOPHIL% 1.6 % (0.0-7.0); HEMATOCRIT 27.9 % (35.0-45.0); HEMOGLOBIN 9.2 gm/dL (12.0-16.0); LYMPHOCYTE# 0.9 X10e3 (1.0-3.5); LYMPHOCYTE% 6.2 % (17.0-45.0); MEAN CELL VOLUME 90.9 FL (83-96); MEAN PLATELET VOLUME 8.6 FL (6.5-11.5); MONOCYTE# 1.4 X10e3 (0-1.0); MONOCYTE% 9.7 % (3.0-12.0); NEUTROPHIL# 11.8 X10e3 (1.5-7.1); NEUTROPHIL% 82.1 % (40-75); PLATELET COUNT 169 X10e3 (140-420); RED BLOOD COUNT 3.06 X10e (3.90-5.30); RED CELL DISTRIBUTION WIDTH 15.9 % (11.0-15.5); WHITE BLOOD COUNT 14.4 X10e3 (4.0-10.5)
[2017-03-28 04:38] LABS: DIFF IND NO
[2017-03-28 04:45] LABS: ALBUMIN SERUM 2.4 g/dL (3.5-5.0); BILIRUBIN,TOTAL 0.6 mg/dL (0.2-2.0); CALCIUM SERUM 8.2 mg/dL (8.4-10.2); GLOM FILT RATE Estimated 60.8 mL/min (>60); POTASSIUM 3.7 mmol/L (3.5-5.1); PROTEIN TOTAL SERUM 6.2 g/dL (6.0-8.3)
[2017-03-28 04:49] LABS: ARTERIAL BLD GAS O2 SATURATION 94.9 % (90.0-100.0); ARTERIAL BLOOD GAS CARBOXY HB 1.9 %sat (0.0-9.0); ARTERIAL BLOOD GAS HCO3 23.6 mmol/L; ARTERIAL BLOOD GAS MET HB 0.8 %sat (0.0-2.0); ARTERIAL BLOOD GAS PCO2 40.2 mmHg (35.0-45.0); ARTERIAL BLOOD GAS PO2 83.2 mmHg (80.0-100); ARTERIAL BLOOD GAS pH 7.377 (7.350-7.450)
[2017-03-28 04:55] LABS: ARTERIAL BLOOD GAS ALLEN TEST NORMAL; ARTERIAL BLOOD GAS ART SITE LEFT RADIAL; ARTERIAL BLOOD GAS DELIVERY ROOM AIR; ARTERIAL DRAW? YES
[2017-03-29 05:25] LABS: BASOPHIL% 0.3 % (0-2.5); EOSINOPHIL# 0.3 X10e3 (0-0.7); EOSINOPHIL% 1.6 % (0.0-7.0); HEMATOCRIT 26.5 % (35.0-45.0); HEMOGLOBIN 8.8 gm/dL (12.0-16.0); LYMPHOCYTE# 2.8 X10e3 (1.0-3.5); MEAN CELL VOLUME 90.1 FL (83-96); MEAN CORPUSCULAR HEMOGLOBIN 29.7 PG (28-34); MEAN PLATELET VOLUME 8.4 FL (6.5-11.5); MONOCYTE# 1.4 X10e3 (0-1.0); MONOCYTE% 7.8 % (3.0-12.0); NEUTROPHIL% 75.3 % (40-75); PLATELET COUNT 173 X10e3 (140-420); RED BLOOD COUNT 2.94 X10e (3.90-5.30); RED CELL DISTRIBUTION WIDTH 15.7 % (11.0-15.5); WHITE BLOOD COUNT 18.5 X10e3 (4.0-10.5)
[2017-03-29 05:38] LABS: DIFF IND YES
[2017-03-29 06:22] LABS: ANISOCYTOSIS SL; PLATELET ESTIMATE NORMAL (NORMAL)
[2017-03-29 06:49] LABS: ALBUMIN SERUM 2.1 g/dL (3.5-5.0); CALCIUM SERUM 7.9 mg/dL (8.4-10.2); GLOM FILT RATE Estimated 60.8 mL/min (>60); POTASSIUM 3.8 mmol/L (3.5-5.1); PROTEIN TOTAL SERUM 5.6 g/dL (6.0-8.3)
[2017-03-30 05:44] LABS: BASOPHIL# 0.1 X10e3 (0-0.3); BASOPHIL% 0.5 % (0-2.5); EOSINOPHIL# 0.4 X10e3 (0-0.7); EOSINOPHIL% 2.3 % (0.0-7.0); HEMATOCRIT 28.3 % (35.0-45.0); HEMOGLOBIN 9.5 gm/dL (12.0-16.0); LYMPHOCYTE% 16.7 % (17.0-45.0); MEAN CELL VOLUME 89.1 FL (83-96); MEAN CORPUSCULAR HEMOGLOBIN 30.1 PG (28-34); MEAN CORPUSCULAR HGB CONC 33.7 g/dL (30-36); MEAN PLATELET VOLUME 8.2 FL (6.5-11.5); MONOCYTE# 1.7 X10e3 (0-1.0); MONOCYTE% 9.2 % (3.0-12.0); NEUTROPHIL# 12.7 X10e3 (1.5-7.1); NEUTROPHIL% 71.3 % (40-75); PLATELET COUNT 234 X10e3 (140-420); RED BLOOD COUNT 3.17 X10e (3.90-5.30); RED CELL DISTRIBUTION WIDTH 15.7 % (11.0-15.5); WHITE BLOOD COUNT 17.9 X10e3 (4.0-10.5)
[2017-03-30 05:49] LABS: DIFF IND NO
[2017-03-30 09:29] LABS: BUN/CREATININE RATIO 23.33; CALCIUM SERUM 7.7 mg/dL (8.4-10.2); CREATININE SERUM 0.9 mg/dL (0.6-1.4); GLOM FILT RATE Estimated 69.1 mL/min (>60); POTASSIUM 4.2 mmol/L (3.5-5.1)
[2017-03-31 06:23] LABS: BASOPHIL# 0.1 X10e3 (0-0.3); BASOPHIL% 0.8 % (0-2.5); EOSINOPHIL# 0.5 X10e3 (0-0.7); EOSINOPHIL% 3.5 % (0.0-7.0); HEMATOCRIT 25.5 % (35.0-45.0); HEMOGLOBIN 8.4 gm/dL (12.0-16.0); LYMPHOCYTE# 3.4 X10e3 (1.0-3.5); LYMPHOCYTE% 24.9 % (17.0-45.0); MEAN CORPUSCULAR HEMOGLOBIN 29.5 PG (28-34); MEAN CORPUSCULAR HGB CONC 32.8 g/dL (30-36); MEAN PLATELET VOLUME 8.7 FL (6.5-11.5); MONOCYTE# 1.2 X10e3 (0-1.0); NEUTROPHIL# 8.4 X10e3 (1.5-7.1); NEUTROPHIL% 61.8 % (40-75); PLATELET COUNT 212 X10e3 (140-420); RED BLOOD COUNT 2.83 X10e (3.90-5.30); RED CELL DISTRIBUTION WIDTH 15.9 % (11.0-15.5); WHITE BLOOD COUNT 13.6 X10e3 (4.0-10.5)
[2017-03-31 06:31] LABS: DIFF IND NO
[2017-03-31 07:01] LABS: BUN/CREATININE RATIO 22.5; CALCIUM SERUM 7.5 mg/dL (8.4-10.2); CREATININE SERUM 0.8 mg/dL (0.6-1.4); GLOM FILT RATE Estimated 79.6 mL/min (>60); POTASSIUM 4.3 mmol/L (3.5-5.1)
[2017-04-01 08:34] LABS: BUN/CREATININE RATIO 23.75; CALCIUM SERUM 8.1 mg/dL (8.4-10.2); CREATININE SERUM 0.8 mg/dL (0.6-1.4); GLOM FILT RATE Estimated 79.6 mL/min (>60); POTASSIUM 4.3 mmol/L (3.5-5.1)
[2017-04-02 06:22] LABS: BASOPHIL% 0.2 % (0-2.5); HEMATOCRIT 26.9 % (35.0-45.0); HEMOGLOBIN 8.8 gm/dL (12.0-16.0); LYMPHOCYTE% 22.7 % (17.0-45.0); MEAN CELL VOLUME 91.8 FL (83-96); MEAN CORPUSCULAR HEMOGLOBIN 29.9 PG (28-34); MEAN CORPUSCULAR HGB CONC 32.5 g/dL (30-36); MEAN PLATELET VOLUME 8.6 FL (6.5-11.5); MONOCYTE# 0.7 X10e3 (0-1.0); MONOCYTE% 2.8 % (3.0-12.0); NEUTROPHIL# 19.6 X10e3 (1.5-7.1); NEUTROPHIL% 74.3 % (40-75); PLATELET COUNT 257 X10e3 (140-420); RED BLOOD COUNT 2.93 X10e (3.90-5.30); RED CELL DISTRIBUTION WIDTH 16.2 % (11.0-15.5)
[2017-04-02 06:24] LABS: DIFF IND YES; WHITE BLOOD COUNT 26.4 X10e3 (4.0-10.5)
[2017-04-02 06:33] LABS: GLOM FILT RATE Estimated 60.8 mL/min (>60); POTASSIUM 4.2 mmol/L (3.5-5.1)
[2017-04-02 06:51] LABS: PLATELET ESTIMATE NORMAL (NORMAL); TOXIC GRANULATION SL
[2017-04-02 06:52] LABS: ANISOCYTOSIS SL
[2017-04-02] MEDS ORDERED: LACTINEX CHEWA1 EACH PO (18:18)
[2017-04-02] MEDS ORDERED: CORTEF10 MG PO (18:18)
[2017-04-02] MEDS ORDERED: PROAMATINE10 MG PO (18:19)
== END 2017-04-02 18:37 | disposition home or self-care (01) | DRG 871 ==
LOC: SED 20:19 → CICCU2 03-26 06:30 → SEDOF 03-26 06:30 → CICCU2 03-26 20:41
PROVIDERS: Emergency Medicine; Internal Medicine; Internal Medicine Pulmonary Disease; Nurse Practitioner Family
PROC: 02HV33Z Insertion of Infusion Device into Superior Vena Cava, Percutaneous Approach (ICD-10-PCS; principal; 2017-03-26)
DX: A41.9 Sepsis, unspecified organism (principal); R65.21 Severe sepsis with septic shock; J18.9 Pneumonia, unspecified organism; I95.9 Hypotension, unspecified; Z93.0 Tracheostomy status; J44.0 Chronic obstructive pulmonary disease with (acute) lower respiratory infection; E27.40 Unspecified adrenocortical insufficiency; R56.9 Unspecified convulsions; I12.9 Hypertensive chronic kidney disease with stage 1 through stage 4 chronic kidney disease, or unspecified chronic kidney disease; N18.9 Chronic kidney disease, unspecified; I25.10 Atherosclerotic heart disease of native coronary artery without angina pectoris; K22.70 Barrett's esophagus without dysplasia; M79.7 Fibromyalgia; E03.9 Hypothyroidism, unspecified; I25.2 Old myocardial infarction; L40.9 Psoriasis, unspecified; G25.81 Restless legs syndrome; Z96.89 Presence of other specified functional implants; Z93.1 Gastrostomy status; Z90.49 Acquired absence of other specified parts of digestive tract; Z98.84 Bariatric surgery status
CPT/HCPCS: 36415; 36600; 70491; 71010; 74176; 80048; 80053; 80076; 80202; 81003; 82306; 82533; 82553; 82652; 82803; 82947; 83690; 84484; 85025; 85027; 87040; 87086; 87493; 93005; 94640; 94760; 94761; 96361; 96365; 96375; 97110; 97161; 97167; 97530; 97535; 99291; G8978-GP; G8979-GP; G8987-GO; G8988-GO; J0171; J1265; J1610; J1650; J1720; J1815; J2248; J2405; J2543; J3370; Q9967

== ENCOUNTER → 2017-04-27 | Outpatient (CLI) | payer BC ==
[~2017-04-27] MED LIST changes: +ALBUTEROL 0.5ML; +ASCORBIC ACID500 M4 PEG; +CORTEF10 MG PEG; +CORTEF10 MG PO; +DESYREL50 MG PEG; +DOCUSATE SODIU100 MG PEG; +FERROUS SULFATE PEG; +FLEXERIL10 MG PEG; +FLUCONAZOLE200 MG PEG; +FOLIC ACID PEG; +GABAPENTIN400 M2 PEG; +GABAPENTIN400 MG PEG; +LACTINEX CHEWA1 EACH PEG; +LACTINEX CHEWA1 EACH PO; +LEVAQUIN750 M1 PEG; +LEVOXYL88 MCG PEG; +MELATONIN1 MG PEG; +MULTI VITAMIN1 EACH PEG; +OMEPRAZOLE40 M1 PEG; +OTEZLA30 MG PEG; +OXYCODONE HCL10 MG PEG; +PLAQUENIL200 MG PEG; +POLYETHYLENE GLY1 GM PEG; +PROAMATINE10 MG PEG; +PROAMATINE10 MG PO; +PROTEIN; +REGLAN5 MG PEG; +REQUIP2 MG PEG; +TIROSINT100 MCG PEG; +TYLENOL325 M1 PEG; +VASELINE WHITE P5 GM TOP; +VITAMIN C500 MG PEG; +VITAMIN D1000 UNI1 PEG; +VITAMIN D1000 UNIT PEG; +WELLBUTRIN100 MG PEG; +ZINC SULFATE220 M1 PEG; +ZOFRAN PEG
--- NOTE | ~2017-04-27 | US6 ---
[facility] A Service of [facility] & [facility] RADIOLOGY TEXT RESULTS PATIENT: ADRIEL BLAKE LOCATION: [facility] : 55 UNIT #: [id number] AGE: [address]: JUANY VALERA SEX: F ORDER DR: [id number] [place], [place] [address] [id number] O MR#: [id number] Acc #: [id number] NAME: ADRIEL BLAKE : 1955 SEX: F STUDY DATE/TIME: 04/27/2017 10:40 UNIT: [facility] ROOM: STUDY DESCRIPTION: US Abdominal Limited Attending Physician: Juany Valera Aprn Referring Physician: Juany Valera Aprn Primary Care Physician: Manisha Rose M.D. MEDICAL IMAGING REPORT This report is preliminary unless electronic signature is present EXAM Right upper quadrant ultrasound, 04/27/2017 HISTORY Abnormally elevated liver enzymes on last doctor visit. Cholecystectomy. FINDINGS The liver demonstrates an increase in echotexture with attenuation of the ultrasound beam characteristic of fatty infiltration. No cystic or solid mass lesions were seen in the liver. The intra and extrahepatic bile ducts are not dilated. The gallbladder is surgically absent as per patient history. The common duct measures 4.0 mm. The pancreas is obscured by bowel gas. The right kidney is atrophic and measures 6.4 cm in greatest diameter and demonstrates cortical thinning and increased cortical echogenicity characteristic of medical renal disease. There is no evidence of hydronephrosis. IMPRESSION 1. Fatty infiltration of the liver. 2. Surgical absence of the gallbladder. 3. Poor visualization of the pancreas due to overlying bowel gas. 4. Atrophic right kidney demonstrating increased cortical echogenicity and cortical thinning characteristic of medical renal disease. Dictated by... Leandro Villafana M.D. THIS IS AN ELECTRONICALLY VERIFIED REPORT Leandro Villafana M.D. at 04/28/2017 10:18 AM Saundra TD: 04/27/2017 13:57 JOB #: [id number] [facility] A Service of [facility] RADIOLOGY TEXT RESULTS PATIENT: ADRIEL BLAKE LOCATION: [facility] #: [id number] : 55 UNIT #: [id number] AGE: [address]: JUANY VALERA SEX: F ORDER DR: MEDICAL IMAGING REPORT Page 1 of 1 COPY
== END | disposition home or self-care (01) ==
LOC: CGUS 09:57
DX: R74.8 Abnormal levels of other serum enzymes (principal); K76.0 Fatty (change of) liver, not elsewhere classified; N26.1 Atrophy of kidney (terminal); R93.421 Abnormal radiologic findings on diagnostic imaging of right kidney; Z90.49 Acquired absence of other specified parts of digestive tract
CPT/HCPCS: 76705

== ENCOUNTER 2017-05-03 22:33 | Observation (INO) | payer BC ==
[~2017-05-03] VITALS: Ht 152.4 cm; Wt 59.4 kg
--- NOTE | ~2017-05-03 | A ---
[facility] Nutrition Therapy DATE: 05/04/17 Patient: ADRIEL BLAKE Physician: SHA Address: [address] [facility] Room/Bed: [address] [place] [address], Zip: [place] [address] Admit Date: 05/04/17 Date of : 55 Height: 5 0 Weight: 130 59 NUTRITIONAL ASSESSMENT: REASON: Consult for enteral nutrition recommendations Admitting dx: 61 y/o female admitted with chest pain PMH: Tracheocutaneous fistula s/p trach, dysphagia s/p PEG, esophageal diverticulum, lap band, detxer, hyperglycemia, CAD, HTN, COPD Anthropometrics: Ht: 60", Wt: 130 lbs (per pt), BMI: 25 (overweight) Labs: BUN 40, AST 93, ALT 104, GFR 44.2 Meds: Lactinex, Levaquin (PEG), Synthroid (PEG), Vitamin C, Reglan I/O & Bowel function: BM 05/02 Skin Integrity: Trach/PEG sites, no other significant issues noted, no edema Estimated Nutrition Needs: 5140-3212 kcals/day (25-28 kcals/kg) 47-59 g protein/day (0.8-1.0 g/kg) Fluids consistent with kcal needs or per MD Assessment: Chart reviewed, events noted. See admitting dx and PMH as stated above. RD consulted to provide EN recs, as the patient has a g-tube and is on bolus feeds at home. She is also NPO at home except ice chips. /boyfriend in room states he is not sure which formula the patient is on, but he gives her 4-5 cans/day via a syringe. Nursing reports he gave the patient a bolus before they came to the hospital last night and the patient had some significant nausea; unsure of the amount pt was given. Family member states no recent known weight loss and pt scored 0 points on the malnutrition risk screening. Of note, she receives synthroid via PEG at home and is currently also on Levaquin via PEG. See recs below, will follow hospital course. Dx: Inadequate oral intake r/t dysphagia AEB NPO, need for EN. Intervention: EN recs as stated below Monitoring, Evaluation and Goals: 1. EN consistent with estimated nutritional needs. 2. No c/o N/V/D. 3. Glucose, lytes WNL. [facility] Nutrition Therapy DATE: 05/04/17 Patient: ADRIEL ANTON HAYDEN Physician: SHA Address: [facility] Room/Bed: [address] [place] [address], Zip: [place] [address] Admit Date: 05/04/17 Date of : 55 Height: 5 0 Weight: 130 59 Monitor: per protocol, criteria to determine whether above goals met Recommendations: 1. Recommended enteral nutrition regimen is as follows: Boluses with Jevity 1.5 240 ml @ 7am 120 ml @ 10am 240 ml @ 1pm 240 ml @ 4pm 240 ml @ 7pm Total = 1080 ml/day *Note Jevity 1.5 does not come in cans, so the bolus will need to be given using a standard bottle and syringe. *Boluses should not be given 1 hour before or after Levaquin administration. They should also not be given 2 hours before or after Synthroid administration. This nutrition regimen will provide 1080 ml, 1620 kcals, 69 g protein and 821 ml water. Please give 75 ml free water flush before and after each bolus, which will add an additional 750 ml water to help meet fluid needs. 2. Patient to remain NPO. Ice chips for pleasure per MD. RD will follow hospital course Moderate nutrition risk Respectfully, Ashly Brady, DANI, LD [employer] [facility] [employer] cc: client file
--- NOTE | ~2017-05-03 | CR72 ---
[facility] A Service of [facility] RADIOLOGY TEXT RESULTS PATIENT: ADRIEL BLAKE LOCATION: [facility] 569-01 : 55 UNIT #: [id number] AGE: [address]: MAGALY RUIZ MD SEX: F ORDER DR: [id number] [facility]. [place], [place] [address] [id number] I MR#: [id number] Acc #: [id number] NAME: ADRIEL BLAKE : 1955 SEX: F STUDY DATE/TIME: 05/03/2017 23:12 UNIT: [facility] ROOM: [facility] STUDY DESCRIPTION: CR Chest Single View Portable Attending Physician: Magaly Ruiz Ordering Physician: Matthew Hill D.O. Primary Care Physician: Manisha Rose M.D. MEDICAL IMAGING REPORT This report is preliminary unless electronic signature is present EXAM Chest x-ray, 05/03/2017 HISTORY 61-year-old female in the ED complaining of new onset chest pain beginning earlier today. TECHNIQUE AP portable chest x-ray. FINDINGS The heart size and pulmonary vascularity are normal. The lungs are expanded and clear. No visible pneumothorax, pulmonary infiltrate or pleural effusion. Extensive old bilateral rib fracture deformities. Postop changes lower cervical spine fusion with immobilization collar in place. Tracheostomy tube in good position. No change since 03/28/2017. IMPRESSION 1. No active disease. 2. Extensive old bilateral rib fracture deformities. Postop changes cervical spine fusion. Tracheostomy tube in good position. 3. No change since 03/28/2017. Dictated by... Girish Boyce M.D. THIS IS AN ELECTRONICALLY VERIFIED REPORT Girish Boyce M.D. at 05/04/2017 9:57 PM Gregor TD: 05/04/2017 09:59 [facility] A Service of [facility] RADIOLOGY TEXT RESULTS PATIENT: ADRIEL BLAKE LOCATION: [facility] 569-01 : 55 UNIT #: [id number] AGE: [address]: MAGALY RUIZ MD SEX: F ORDER DR: JOB #: [id number] MEDICAL IMAGING REPORT Page 1 of 1 COPY
--- NOTE | ~2017-05-03 | HP ---
Unit #: [id number] #: [id number] Patient: ADRIEL BLAKE [id number] [address] [place], [place] [address] [id number] I MR#: [id number] NAME: ADRIEL BLAKE ROOM: 569 Age: 61 Sex: F Admission Date: 05/04/2017 : 1955 Attending Physician: Magaly Crowe M.D. Primary Care Physician: Manisha Rose M.D. HISTORY AND PHYSICAL CHIEF COMPLAINT Chest pain and cough. HISTORY OF PRESENT ILLNESS This is a 61-year-old female who is well known to our service from previous admission with past medical history significant for adrenal insufficiency, hypertension, coronary artery disease, tracheocutaneous fistula in 2016, Engel esophagus, and chronic kidney disease, who presented to the emergency room with chest pain, shortness of breath, and cough. Patient stated that she saw her Infectious Disease doctor at [facility] last week, Dr. Burton, who prescribed her Levaquin for a positive culture from her neck EDEN drain. Patient has been taking the Levaquin for the last couple of days, but yesterday she started having increased shortness of breath with productive cough of greenish sputum, and she started having constant dull chest pain in the middle of her chest with no radiation to her back or arm. Patient denied any fever, chills, or night sweats. Of note, patient is well known to have a history of tracheocutaneous fistula, status post repair in 2016. Also, she has had multiple neck surgeries with hardware present, and she also currently has a neck collar. She recently underwent successful esophageal repair at the [facility] with revision of the hardware. Her cultures in the past were positive for Aileen albicans and Aileen glabrata. PAST MEDICAL HISTORY 1. Rheumatoid arthritis. 2. Coronary artery disease. 3. Chronic obstructive pulmonary disease. 4. Pancytopenia. 5. Hypertension. 6. Restless leg syndrome. 7. Adrenal insufficiency. 8. Neck abscess. PAST SURGICAL HISTORY 1. Cholecystectomy. 2. Lap-Band surgery. 3. Breast reduction surgery. 4. Left wrist surgery. 5. C-spine surgery. 6. Multiple neck surgeries. 7. Esophageal repair. 8. Tracheocutaneous fistula repair. Unit #: [id number] #: [id number] Patient: ADRIEL BLAKE ALLERGIES No known drug allergies. HOME MEDICATIONS 1. Lopressor. 2. Synthroid. 3. Wellbutrin. 4. Pepcid. 5. Flexeril. 6. Trazodone. 7. Lasix. 8. Neurontin. 9. Requip. 10. Reglan. 11. Lipitor. 12. Tylenol. 13. Otezla. 14. Levaquin. SOCIAL HISTORY Patient lives with her . She stopped smoking 12 years ago. No history of alcohol or drug abuse. FAMILY HISTORY Hypertension and coronary artery disease. REVIEW OF SYSTEMS A 12-point review of systems was obtained and was negative except for cough, shortness of breath, and chest pain. PHYSICAL EXAMINATION GENERAL: Patient is in no acute distress. VITAL SIGNS: Blood pressure 132/71, respiratory rate 16, and O2 saturation 98%. HEENT: Atraumatic and normocephalic. PERRLA. EOMI. NECK: With EDEN drain and a neck collar around. CHEST: Fine rhonchi at the bases of her lungs. HEART: S1 and S2. No murmur, gallops, or rubs. ABDOMEN: Soft and nontender. Bowel sounds present. No hepatosplenomegaly. EXTREMITIES: No edema or cyanosis. SKIN: No rashes. CENTRAL NERVOUS SYSTEM: Awake, alert, and oriented x3. No focal motor/sensory deficits. DIAGNOSTIC STUDIES LABORATORY: Creatinine 1.3 and sodium 136. White blood count 16.8, hemoglobin 12.7, and platelets 281,000. IMAGING: Chest x-ray is clear. ASSESSMENT 1. Chest pain, atypical. 2. Rule out pneumonia versus bronchitis. 3. Leukocytosis. 4. Malnutrition. 5. History of rheumatoid arthritis. Unit #: [id number] #: [id number] Patient: ADRIEL BLAKE 6. Neck abscess. 7. Coronary artery disease. 8. Possible chronic obstructive pulmonary disease. 9. Psoriasis. PLAN 1. Will continue Levaquin which was started by Dr. Burton at [facility] for neck abscess. 2. Will add Zosyn for possible aspiration pneumonia. 3. CT chest and neck to assess for pneumonia and neck abscess. 4. Bronchodilator and mucolytics. 5. Antitussive. 6. Will restart patient's tube feeds today and add free water. 7. DVT prophylaxis. The plan was discussed with the patient and her at bedside. All questions were answered to my best ability. Dictated by Raymundo Tapia TD: 05/04/2017 21:36 JOB #: [id number] HISTORY AND PHYSICAL Page 1 of 1 X MAGALY AUSTIN MD X HISTORY AND PHYSICAL
--- NOTE | ~2017-05-03 | CO ---
Unit #: [id number] #: [id number] Patient: ADRIEL BLAKE [id number] [address] [place], [place] [address] [id number] I MR#: [id number] NAME: ADRIEL BLAKE ROOM: 569 Age: 61 Sex: F Admission Date: 05/04/2017 : 1955 Attending Physician: Roger Ruiz Primary Care Physician: Manisha Rose M.D. Consultation Date: 05/04/2017 CONSULTATION REPORT REASON FOR CONSULTATION The patient with history of pneumonia and neck abscess. HISTORY OF PRESENT ILLNESS The patient is a 61-year-old female, known to us from previous admission, with history of neck abscess, status post I and D, tracheocutaneous fistula. The wound cultures from the neck were positive for Aileen albicans and Aileen glabrata. She finished a prolonged course of fluconazole therapy. It looks like she has been seen recently at [facility] by Infectious Diseases Team and from the notes it looks like he was started on Levaquin because of the positive EDEN drain culture. She is admitted with chest pain. No fevers, chills, nausea, vomiting, or diarrhea. Some cough. She was started on Zosyn and Levaquin. Infectious Diseases consultation was requested for further evaluation and antibiotic management. Please refer to our previous notes for further details on the patient. PHYSICAL EXAMINATION GENERAL: Right now, she is lying comfortably in bed. Does not seem to be in any distress. He is in a neck collar. VITAL SIGNS: Temperature 98, pulse , respirations 19, blood pressure 112/66. HEENT: Remarkable for neck collar. CHEST: Clear to auscultation. HEART: Normal S1, S2. ABDOMEN: Soft, nontender. DIAGNOSTIC STUDIES IMAGING STUDIES: CT scan of the chest and neck is pending. Chest x-ray does not reveal any new infiltrates. LABORATORY RESULTS: BUN 40, creatinine 1.3, AST 93, ALT 104, alkaline phosphatase 254. WBC 16.8, hemoglobin 12.7, platelets 281. Cultures are pending. ASSESSMENT 1. History of neck abscess. 2. History of pneumonia. 3. Chest pain. 4. Leukocytosis. 5. Transaminitis. PLAN Unit #: [id number] #: [id number] Patient: ADRIEL BLAKE At this time, I think the most likely cause of the patient's increased WBC was the steroid use that she takes for her COPD. We are going to follow up on the results of CT scan of the chest and neck. In the meantime, continue with Zosyn and Levaquin. Follow up on cultures. Further recommendation depending upon the course. I would like to thank Dr. Crowe for asking us to participate in the care of this patient. We will follow this patient along with you. Dictated by... Raymundo Patel TD: 05/06/2017 06:44 JOB #: [id number] CONSULTATION REPORT Page 1 of 1 X Blake Zambrano MD CONSULTATION REPORT
--- NOTE | ~2017-05-03 | CT116 ---
[facility] A Service of [facility] & [facility] RADIOLOGY TEXT RESULTS PATIENT: ADRIEL BLKAE LOCATION: [facility] 569-01 : 55 UNIT #: [id number] AGE: [address]: MAGALY RUIZ MD SEX: F ORDER DR: [id number] [facility]. [place], [place] [address] [id number] I MR#: [id number] #: [id number] NAME: ADRIEL BLAKE : 1955 SEX: F STUDY DATE/TIME: 05/04/2017 16:07 UNIT: [facility] ROOM: [facility] STUDY DESCRIPTION: CT Soft Tissue Neck Wo Cont Attending Physician: Magaly Ruiz Ordering Physician: Magaly Crowe M.D. Primary Care Physician: Manisha Rsoe M.D. MEDICAL IMAGING REPORT This report is preliminary unless electronic signature is present EXAM Neck CT without contrast HISTORY Neck surgery 02/14/2017. Neck drain began hurting 4 days ago. Concern for neck abscess. TECHNIQUE Axial imaging was obtained from the skull base to the upper mediastinum without contrast. This CT exam was performed with one or more of the following radiation dose reduction techniques: automatic control, adjustment of mA and/or kV according to patient size, and iterative reconstruction. FINDINGS Skull base, parapharyngeal spaces and pharyngeal mucosal surfaces have a normal appearance. The parotid and submandibular glands are symmetric. Extensive changes of anterior and posterior cervical fusion are noted with a tracheostomy tube in place. A drain is seen entering on the right side. It extends posterolateral to the trachea down to the prevertebral space behind the esophagus at T2. No fluid collections are seen associated with the drain. No evidence of a neck abscess. Alignment across the cervical fusion appears satisfactory with no hardware complications noted. IMPRESSION No evidence of abscess. The drain appears in satisfactory position with no fluid collections seen along it. Satisfactory postoperative alignment and position. STAT * RESULT STS. [facility] A Service of [facility] & [facility] RADIOLOGY TEXT RESULTS PATIENT: ADRIEL BLAKE LOCATION: [facility] 569-01 : 55 UNIT #: [id number] AGE: [address]: MAGALY RUIZ MD SEX: F ORDER DR: Dictated by... Micheal Strickland M.D. THIS IS AN ELECTRONICALLY VERIFIED REPORT Micheal Strickland M.D. at 05/05/2017 4:42 PM AGUSTINA/ninfa TD: 05/04/2017 16:53 JOB #: [id number] MEDICAL IMAGING REPORT Page 1 of 1 COPY
--- NOTE | ~2017-05-03 | EKG ---
PATIENT: ADRIEL BLAKE UNIT #: [id number] Ventricular Rate: 99 BPM Atrial Rate: 99 BPM P-R Interval: 158 ms QRS Duration: 84 ms Q-T Interval: 326 ms QTC Calculation(Bezet): 418 ms P Elmore: 46 degrees Calculated R Elmore: 2 degrees Calculated T Elmore: 99 degrees Diagnosis Line: Normal sinus rhythm Diagnosis Line: T wave abnormality, consider anterolateral Diagnosis Line: ischemia Diagnosis Line: Prolonged QT Diagnosis Line: Abnormal ECG Diagnosis Line: When compared with ECG of 26-MAR-2017 10:57, Diagnosis Line: T wave inversion no longer evident in Inferior Diagnosis Line: leads Diagnosis Line: T wave inversion now evident in Anterolateral Diagnosis Line: leads Diagnosis Line: QT has lengthened Diagnosis Line: Confirmed by PRINCE SCOTT MD ([id number]) on 05/04/2017 Diagnosis Line: 7:16:46 PM INTERPRETING MD: SONIA TREVINO
--- NOTE | ~2017-05-03 | DS ---
Unit #: [id number] #: [id number] Patient: ADRIEL BLAKE [id number] [address] [place], [place] [address] [id number] I MR#: [id number] NAME: ADRIEL BLAKE ROOM: 569 Age: 61 Sex: F Admission Date: 05/04/2017 : 1955 Discharge Date: 05/05/2017 Attending Physician: Magaly Crowe M.D. Primary Care Physician: Manisha Rose M.D. DISCHARGE SUMMARY ADMITTING DIAGNOSES 1. Chest pain. 2. Neck abscess. DISCHARGE DIAGNOSES 1. Chest pain, atypical, likely related to bronchitis. 2. Neck abscess. 3. Rheumatoid arthritis. 4. Coronary artery disease. 5. Chronic obstructive pulmonary disease. 6. Pancytopenia. 7. Engel esophagus. 8. Tracheocutaneous fistula. 9. Adrenal insufficiency. [facility] Infectious Disease. IMAGING CT chest and CT neck. DISCHARGE MEDICATIONS 1. Levaquin. Finish the course that was started by Dr. Burton at [facility]. 2. Lopressor. 3. Synthroid. 4. Wellbutrin. 5. Pepcid. 6. Flexeril. 7. Trazodone. 8. Lasix. 9. Neurontin. 10. Requip. 11. Reglan. 12. Tylenol. 13. Otezla. BRIEF HOSPITAL COURSE This is a well-known patient to our service from previous admission with complicated history including tracheocutaneous fistula in 2016 status post most multiple neck surgeries complicated with neck abscess status post EDEN drain placement, who presented to the emergency room with chest pain. Please refer to my history and physical exam for more description of her chest pain. Unit #: [id number] #: [id number] Patient: ADRIEL BLAKE Patient also admitted productive cough and some chills. Initially, it was thought that she has an aspiration pneumonia due to her neck position. So, patient was started on Zosyn and a CT chest was obtained which confirmed no infiltrate consistent with pneumonia. So, her chest pain was thought most likely is related to bronchitis and it is atypical in nature. The patient is chest pain free on the time of discharge. The patient was also continued on Levaquin which was started by Dr. Burton from [facility] Infectious Disease Service for neck abscess. That course will be continued as an outpatient as per recommendation. PHYSICAL EXAM ON DISCHARGE GENERAL APPEARANCE: The patient is awake, alert and stable. LUNGS: Clear to auscultation. LOWER EXTREMITIES: No edema. HEART: S1, S2. No murmur, gallop or rubs. CENTRAL NERVOUS SYSTEM: Awake, alert, oriented x3. Dictated by... Raymundo Tapia TD: 05/05/2017 13:52 JOB #: [id number] DISCHARGE SUMMARY Page 1 of 1 X MAGALY AUSTIN MD X DISCHARGE SUMMARY
--- NOTE | ~2017-05-03 | CT57 ---
[facility] A Service of [facility] & [facility] RADIOLOGY TEXT RESULTS PATIENT: ADRIEL BLAKE [facility]-01 : 55 UNIT #: [id number] AGE: [address]: MAGALY AUSTIN MD SEX: F ORDER DR: [id number] [facility] [address] [facility]. [place], [place] [address] [id number] I MR#: [id number] #: [id number] NAME: ADRIEL BLAKE : 1955 SEX: F STUDY DATE/TIME: 05/04/2017 10:54 UNIT: [facility] ROOM: [facility] STUDY DESCRIPTION: CT Chest Wo Cont Attending Physician: Magaly Crowe M.D. Ordering Physician: Magaly Crowe M.D. Primary Care Physician: Manisha Rose M.D. MEDICAL IMAGING REPORT This report is preliminary unless electronic signature is present EXAM Chest CT, no contrast, 05/04/2017. INDICATIONS 61-year-old female with possible pneumonia. Neck abscess. Chest pain since May 02. Neck surgery on February 14. Drain started hurting about 4 days ago. TECHNIQUE Noncontrast CT chest was performed. This CT exam was performed with one or more of the following radiation dose reduction techniques: automatic exposure control, adjustment of mA and/or kV according to patient size, and iterative reconstruction. COMPARISON Comparison 09/07/2016. FINDINGS CT CHEST: Interval resolution of bilateral effusions. Probable residual rounded atelectasis in the left lung base. There is old healed granulomatous disease. There is some minimal upper lobe scarring on the right. Incidental secretions in the tracheobronchial tree inferiorly on the right. No evidence of dense consolidation. No pneumothorax. Tracheostomy tube in good position above the omayra. Radiopaque drain terminates in the anterior-superior mediastinum from a right-sided approach. No pericardial effusion. No axillary adenopathy. Reactive-appearing mediastinal nodes. Aorta demonstrates atherosclerotic change. Lap-Band present. Included upper abdomen demonstrates atrophy and cortical scarring of the kidneys. Gallbladder surgically absent. Probable mild cirrhotic change of the liver. Fullness of the left adrenal gland stable. STS. [facility] A Service of [facility] & [facility] RADIOLOGY TEXT RESULTS PATIENT: ADRIEL BLAKE [facility] 569-01 : 55 UNIT #: [id number] AGE: [address]: MAGALY AUSTIN MD SEX: F ORDER DR: Osseous structures demonstrate spinal degenerative change. The patient is status post cervical and thoracic fusion procedures anteriorly and posteriorly. IMPRESSION 1. Resolution of bilateral effusions. Old healed granulomatous disease with some minimal scarring, but no evidence of pneumonia. 2. Radiopaque drain in the anterior/superior mediastinum. 3. Upper abdomen demonstrates probable mild cirrhosis, cortical scarring of the kidneys, and fullness of the left adrenal gland all unchanged. 4. Interval resolution of ascites. 5. Status post cholecystectomy and Lap-Band placement. Dictated by... Jose Marie M.D. THIS IS AN ELECTRONICALLY VERIFIED REPORT Jose Marie M.D. at 05/04/2017 11:34 PM Yoni TD: 05/04/2017 23:24 JOB #: [id number] MEDICAL IMAGING REPORT Page 1 of 1 COPY
[~2017-05-03 22:33] MED LIST changes: -CORTEF10 MG PEG; -GABAPENTIN400 M2 PEG; -LACTINEX CHEWA1 EACH PEG; -LEVAQUIN750 M1 PEG; -OTEZLA30 MG PEG; -PLAQUENIL200 MG PEG; -PROAMATINE10 MG PEG; -REGLAN5 MG PEG; -TIROSINT100 MCG PEG; -VITAMIN C500 MG PEG; -VITAMIN D1000 UNIT PEG; -ZINC SULFATE220 M1 PEG
[2017-05-03] MEDS ORDERED: WELLBUTRIN100 MG PEG (23:39)
[2017-05-03] MEDS ORDERED: FLEXERIL10 MG PEG (23:39)
[2017-05-03] MEDS ORDERED: GABAPENTIN400 M2 PEG (23:39)
[2017-05-03] MEDS ORDERED: PLAQUENIL200 MG PEG (23:40)
[2017-05-03] MEDS ORDERED: CORTEF10 MG PEG (23:40)
[2017-05-03] MEDS ORDERED: LACTINEX CHEWA1 EACH PEG (23:41)
[2017-05-03] MEDS ORDERED: TIROSINT100 MCG PEG (23:41)
[2017-05-03] MEDS ORDERED: PROAMATINE10 MG PEG (23:42)
[2017-05-03] MEDS ORDERED: ZINC SULFATE220 M1 PEG (23:43)
[2017-05-03] MEDS ORDERED: REQUIP2 MG PEG (23:43)
[2017-05-03] MEDS ORDERED: DESYREL50 MG PEG (23:43)
[2017-05-03] MEDS ORDERED: VITAMIN C500 MG PEG (23:44)
[2017-05-03] MEDS ORDERED: VITAMIN D1000 UNIT PEG (23:45)
[2017-05-03] MEDS ORDERED: REGLAN5 MG PEG (23:45)
[2017-05-03] MEDS ORDERED: LEVAQUIN750 M1 PEG (23:46)
[2017-05-03] MEDS ORDERED: OTEZLA30 MG PEG (23:46)
[2017-05-04] LABS: BASOPHIL% 0.2 % (0-2.5); EOSINOPHIL% 0.3 % (0.0-7.0); HEMATOCRIT 38.6 % (35.0-45.0); HEMOGLOBIN 12.7 gm/dL (12.0-16.0); LYMPHOCYTE# 2.2 X10e3 (1.0-3.5); LYMPHOCYTE% 13.2 % (17.0-45.0); MEAN CELL VOLUME 95.2 FL (83-96); MEAN CORPUSCULAR HEMOGLOBIN 31.3 PG (28-34); MEAN CORPUSCULAR HGB CONC 32.9 g/dL (30-36); MEAN PLATELET VOLUME 7.4 FL (6.5-11.5); MONOCYTE# 0.9 X10e3 (0-1.0); MONOCYTE% 5.6 % (3.0-12.0); NEUTROPHIL# 13.5 X10e3 (1.5-7.1); NEUTROPHIL% 80.7 % (40-75); PLATELET COUNT 281 X10e3 (140-420); RED BLOOD COUNT 4.06 X10e (3.90-5.30); RED CELL DISTRIBUTION WIDTH 17.4 % (11.0-15.5); WHITE BLOOD COUNT 16.8 X10e3 (4.0-10.5)
[2017-05-04 00:01] LABS: DIFF IND YES
[2017-05-04 00:16] LABS: ANISOCYTOSIS MOD; OVALOCYTES PRESENT; PLATELET ESTIMATE NORMAL (NORMAL)
[2017-05-04 00:17] LABS: INR 1.2; PARTIAL THROMBOPLASTIN TIME 27.7 SECONDS (23.5-31.3); POIKILOCYTOSIS SL; PROTHROMBIN TIME (PATIENT) 12.6 SECONDS (10.0-11.7); STOMATOCYTE PRESENT
[2017-05-04 00:20] LABS: ALBUMIN SERUM 2.9 g/dL (3.5-5.0); BILIRUBIN, DIRECT 0.1 mg/dL (0.0-0.2); BILIRUBIN,INDIRECT 0.4 mg/dL (0.0-0.9); BILIRUBIN,TOTAL 0.5 mg/dL (0.2-2.0); BUN/CREATININE RATIO 30.76; CALCIUM SERUM 9.1 mg/dL (8.4-10.2); CREATININE SERUM 1.3 mg/dL (0.6-1.4); GLOM FILT RATE Estimated 44.2 mL/min (>60); POTASSIUM 4.4 mmol/L (3.5-5.1); PROTEIN TOTAL SERUM 6.5 g/dL (6.0-8.3)
[2017-05-04 00:22] LABS: POC - CKMB 2.5 ng/mL (0.0-7.9); POC - TROPONIN <0.05 ng/mL (<=0.05)
[2017-05-04 03:39] LABS: POC - TROPONIN <0.05 ng/mL (<=0.05)
[2017-05-05 06:51] LABS: HEMATOCRIT 36.5 % (35.0-45.0); HEMOGLOBIN 11.8 gm/dL (12.0-16.0); MEAN CELL VOLUME 96.3 FL (83-96); MEAN CORPUSCULAR HEMOGLOBIN 31.2 PG (28-34); MEAN CORPUSCULAR HGB CONC 32.4 g/dL (30-36); MEAN PLATELET VOLUME 7.3 FL (6.5-11.5); RED BLOOD COUNT 3.79 X10e (3.90-5.30); RED CELL DISTRIBUTION WIDTH 17.4 % (11.0-15.5); WHITE BLOOD COUNT 17.6 X10e3 (4.0-10.5)
[2017-05-05 06:58] LABS: BUN/CREATININE RATIO 23.33; CALCIUM SERUM 8.6 mg/dL (8.4-10.2); CREATININE SERUM 1.2 mg/dL (0.6-1.4); GLOM FILT RATE Estimated 48.7 mL/min (>60); POTASSIUM 4.4 mmol/L (3.5-5.1)
[2017-05-05] MEDS ORDERED: HUMIBID-LA600 MG PO (11:09)
== END 2017-05-05 12:07 | disposition home or self-care (01) | DRG 313 ==
LOC: CED 22:33 → CEDOF 05-04 04:15 → CED 05-04 04:29 → C5C 05-04 06:41 → CEDOF 05-04 06:41 → C5C 05-05 12:07
PROVIDERS: Emergency Medicine; Internal Medicine Pulmonary Disease
DX: R07.89 Other chest pain (principal); L02.11 Cutaneous abscess of neck; M06.9 Rheumatoid arthritis, unspecified; I25.10 Atherosclerotic heart disease of native coronary artery without angina pectoris; J44.9 Chronic obstructive pulmonary disease, unspecified; D61.818 Other pancytopenia; K22.70 Barrett's esophagus without dysplasia; J95.04 Tracheo-esophageal fistula following tracheostomy; E27.40 Unspecified adrenocortical insufficiency; L40.9 Psoriasis, unspecified; Z87.891 Personal history of nicotine dependence; Z82.49 Family history of ischemic heart disease and other diseases of the circulatory system; Z79.899 Other long term (current) drug therapy; Z90.49 Acquired absence of other specified parts of digestive tract; Z98.84 Bariatric surgery status
CPT/HCPCS: 36415; 70490; 71010; 71250; 80048; 80076; 82308; 82553; 84484; 85025; 85027; 85610; 85730; 87070; 87205; 93005; 94640; 94760; 96374; 96375; 96376; 99285; G0378; J2270; J2543

== ENCOUNTER → 2017-05-26 | Outpatient (CLI) | payer BC ==
[~2017-05-26] MED LIST changes: +CORTEF10 MG PEG; +GABAPENTIN400 M2 PEG; +LACTINEX CHEWA1 EACH PEG; +LEVAQUIN750 M1 PEG; +OTEZLA30 MG PEG; +PLAQUENIL200 MG PEG; +PROAMATINE10 MG PEG; +REGLAN5 MG PEG; +TIROSINT100 MCG PEG; +VITAMIN C500 MG PEG; +VITAMIN D1000 UNIT PEG; +ZINC SULFATE220 M1 PEG
[2017-05-26 13:17] LABS: BASOPHIL# 0.1 X10e3 (0-0.3); BASOPHIL% 0.4 % (0-2.5); HEMATOCRIT 33.5 % (35.0-45.0); HEMOGLOBIN 11.1 gm/dL (12.0-16.0); LYMPHOCYTE% 14.5 % (17.0-45.0); MEAN CELL VOLUME 95.4 FL (83-96); MEAN CORPUSCULAR HEMOGLOBIN 31.4 PG (28-34); MEAN PLATELET VOLUME 7.5 FL (6.5-11.5); MONOCYTE# 1.1 X10e3 (0-1.0); MONOCYTE% 8.4 % (3.0-12.0); NEUTROPHIL# 10.5 X10e3 (1.5-7.1); NEUTROPHIL% 76.7 % (40-75); PLATELET COUNT 180 X10e3 (140-420); RED BLOOD COUNT 3.52 X10e (3.90-5.30); RED CELL DISTRIBUTION WIDTH 16.9 % (11.0-15.5); WHITE BLOOD COUNT 13.7 X10e3 (4.0-10.5)
[2017-05-26 13:19] LABS: DIFF IND NO
[2017-05-26 13:49] LABS: ALBUMIN SERUM 2.7 g/dL (3.5-5.0); CREATININE SERUM 1.2 mg/dL (0.6-1.4); GLOM FILT RATE Estimated 48.7 mL/min (>60); PHOSPHOROUS 3.6 mg/dL (2.5-4.6); POTASSIUM 3.9 mmol/L (3.5-5.1)
[2017-05-26 13:56] LABS: THYROID STIMULATING HORMONE 9.92 uIU/ml (0.34-5.60)
[2017-05-26 15:48] LABS: FREE THYROXIN (T4) 1.31 ng/dL (0.58-1.64)
[2017-05-29 09:18] LABS: CALCIUM (PTHINTACT) 9.3 mg/dL (8.6-10.4)
== END | disposition home or self-care (01) ==
LOC: SLAB 12:01
PROVIDERS: Internal Medicine Nephrology
DX: N25.81 Secondary hyperparathyroidism of renal origin (principal); N18.3 Chronic kidney disease, stage 3 (moderate); E55.9 Vitamin D deficiency, unspecified
CPT/HCPCS: 36415; 80048; 82040; 82306; 82310; 83036; 83735; 83970; 84100; 84439; 84443; 85025

== ENCOUNTER → 2017-06-06 | Outpatient (CLI) | payer BC ==
--- NOTE | ~2017-06-06 | CT116 ---
[facility] A Service of [facility] & [facility] RADIOLOGY TEXT RESULTS PATIENT: ADRIEL BLAKE [facility] UNIT #: [id number] AGE: [address]: LOVELY GONSALVES SEX: F ORDER DR: [id number] [facility]. [place], [place] [address] [id number] O MR#: [id number] Acc #: [id number] NAME: ADRIEL BLAKE : 1955 SEX: F STUDY DATE/TIME: 06/06/2017 16:31 UNIT: [facility] ROOM: STUDY DESCRIPTION: CT Soft Tissue Neck Wo Cont Attending Physician: Lovely Gonsalves M.D. Referring Physician: Lovely Gonsalves M.D. Ordering Physician: Physician Non-Staff Primary Care Physician: Manisha Rose M.D. MEDICAL IMAGING REPORT This report is preliminary unless electronic signature is present EXAM Soft tissue neck CT with contrast 06/06/2017 COMPARISON Previous soft tissue neck CT dated 05/04/2017. PROCEDURE Axial unenhanced soft tissue neck CT with multiplanar reformats. This CT examination was performed with one or more of the following radiation dose reduction techniques: automatic exposure control, adjustment of mA and/or kV according to patient size, and iterative reconstruction. HISTORY Persistent neck pain following cervical fusion and infection/abscess requiring drainage. FINDINGS The right cervical drain has been removed since the study of 05/04/2017. There is no bone erosion or destruction. There are however persistent soft tissue changes abutting the anterior border of the upper thoracic spine at the thoracic inlet, with air in the deep soft tissues abutting the spine just posterior to the esophagus. 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 Again there is no bone erosion or destruction. The lower mediastinum appears unremarkable. There is no pneumothorax. IMPRESSION 1. The drain has been removed since the prior study but there is a small amount of prevertebral air abutting the lower cervical and upper thoracic spine without bone erosion or destruction or internal fusion device loosening or failure. There may be a small persistent esophageal fistula suggested on several images which is likely the origin of the STS. [facility] A Service of [facility] & [facility] RADIOLOGY TEXT RESULTS PATIENT: ADRIEL BLAKE LOCATION: [facility] : 55 UNIT #: [id number] AGE: [address]: LOVELY GONSALVES SEX: F ORDER DR: prevertebral air. 2. No new abnormality is seen. Dictated by... Broderick Benitez M.D. THIS IS AN ELECTRONICALLY VERIFIED REPORT Broderick Benitez M.D. at 06/08/2017 2:07 PM JOHANN/kimmy TD: 06/07/2017 13:54 JOB #: [id number] MEDICAL IMAGING REPORT Page 1 of 1 COPY
--- NOTE | ~2017-06-06 | CT52 ---
[facility] A Service of [facility] RADIOLOGY TEXT RESULTS PATIENT: ADRIEL BLAKE [facility]ATION: [facility] : 55 UNIT #: [id number] AGE: [address]: LOVELY GONSALVES SEX: F ORDER DR: [id number] [facility] [address] [facility]. [place], [place] [address] [id number] O MR#: [id number] Acc #: [id number] NAME: ADRIEL BLAKE : 1955 SEX: F STUDY DATE/TIME: 06/06/2017 14:33 UNIT: [facility] ROOM: STUDY DESCRIPTION: CT Cervical Spine Wo Cont Attending Physician: Lovely Gonsalves M.D. Referring Physician: Lovely Gonsalves M.D. Ordering Physician: Jose De Jesus Kim M.D. Primary Care Physician: Manisha Rose M.D. MEDICAL IMAGING REPORT This report is preliminary unless electronic signature is present EXAM Cervical spine CT no contrast 06/06/[address]ial cervical spine CT with multiplanar reformats.. HISTORY Persistent neck pain, cervical fusion and history of abscess. The CT exam was performed with one or more of the following radiation dose reduction techniques: automatic exposure control, adjustment of mA and/or kV according to patient size, and iterative reconstruction. FINDINGS There has been extensive anterior and posterior fusion. There is some as yet unincorporated posterior bone graft material. There is unchanged slight lucency surrounding the left C8-2 articular mass neither decreased nor worsened since the prior study. No other evidence of possible device loosening or failure is seen at any level. There has been no change in the spine alignment since the prior study. Soft tissue changes along the anterior border of the spine were better assessed on the accompanying soft tissue neck CT, but there is no bone erosion or destruction at any level. IMPRESSION 1. Extensive stable postsurgical changes, stable lucency around the left C2 articular mass screw. No new evidence to suggest loosening or failure at any level. Please see accompanying soft tissue neck CT regarding soft tissue changes. 2. Posterior bone graft material remains partially unincorporated but again stable in appearance since the prior study. [facility] A Service of [facility] RADIOLOGY TEXT RESULTS PATIENT: ADRIEL BLAKE LOCATION: [facility] : 55 UNIT #: [id number] AGE: [address]: LOVELY GONSALVES SEX: F ORDER DR: Dictated by... Broderick Benitez M.D. THIS IS AN ELECTRONICALLY VERIFIED REPORT Broderick Benitez M.D. at 06/08/2017 2:07 PM JOHANN/jos TD: 06/07/2017 13:34 JOB #: [id number] MEDICAL IMAGING REPORT Page 1 of 1 COPY
[2017-06-06 18:10] LABS: POC - CREATININE 0.78 mg/dL (0.44-1.03); POC - GFR >60.0 mL/min (>60)
== END | disposition home or self-care (01) ==
LOC: CCAT 14:20
PROVIDERS: Otolaryngology
DX: K57.30 Diverticulosis of large intestine without perforation or abscess without bleeding (principal); G93.9 Disorder of brain, unspecified; Q39.6 Congenital diverticulum of esophagus; Z93.0 Tracheostomy status; Z98.890 Other specified postprocedural states
CPT/HCPCS: 70490; 72125; 82565

== ENCOUNTER → 2017-06-12 | Outpatient (CLI) | payer BC ==
--- NOTE | ~2017-06-12 | MY29 ---
[facility] A Service of [facility] & [facility] RADIOLOGY TEXT RESULTS PATIENT: ADRIEL BLAKE LOCATION: [facility] : 55 UNIT #: [id number] AGE: [address]: Manisha Rose MD SEX: F ORDER DR: [id number] [facility] [address] [facility]. [place], [place] [address] [id number] O MR#: [id number] Acc #: [id number] NAME: ADRIEL BLAKE : 1955 SEX: F STUDY DATE/TIME: 06/12/2017 13:41 UNIT: [facility] ROOM: STUDY DESCRIPTION: MY SEGUNDO SCREENING W/ CAD BILAT Attending Physician: Manisha Rose M.D. Referring Physician: Manisha Rose M.D. Ordering Physician: Manisha Rose M.D. Primary Care Physician: Manisha Rose M.D. MEDICAL IMAGING REPORT This report is preliminary unless electronic signature is present EXAM Digital screening mammogram 06/12/2017 HISTORY 61-year-old woman prior reduction mammoplasties. Patient unable to stand with a tracheostomy feeding tube, frozen right shoulder, weight loss. COMPARISON Mammograms date to 03/06/2006 with most recent 06/09/2016. FINDINGS Digital imaging of each breast was completed utilizing screening protocol. Review includes FDA-approved CAD device. Breast size asymmetry is suggested with the right breast imaging larger than the left. Parenchyma is fatty replaced in each breast. Occasional benign calcification stable in each breast. There is no interval occurring mass. I see no developing microcalcifications and no suspicious architectural deformity. IMPRESSION Negative stable mammogram. Annual screening recommended. Patients over the age of 40 are entered into a reminder system with target due date for the next mammogram. A result letter will also be sent to the patient. BIRADS: 1 Negative Dictated by... Rico Recinos M.D. THIS IS AN ELECTRONICALLY VERIFIED REPORT Rico Recinos M.D. at 06/13/2017 1:04 PM [facility] A Service of [facility] & [facility] RADIOLOGY TEXT RESULTS PATIENT: ADRIEL BLAKE LOCATION: [facility] : 55 UNIT #: [id number] AGE: [address]: Manisha Rose MD SEX: F ORDER DR: MARTHA/kimmy TD: 06/13/2017 10:12 JOB #: [id number] MEDICAL IMAGING REPORT Page 1 of 1 COPY
== END | disposition home or self-care (01) ==
LOC: CWCC 06-09 14:30
DX: Z12.31 Encounter for screening mammogram for malignant neoplasm of breast (principal); Z98.890 Other specified postprocedural states
CPT/HCPCS: G0202